=== PATIENT | female | born 1960 | race African-American/Black ===

== ENCOUNTER 2016-10-09 16:26 | Inpatient (IN) | payer BC ==
[2016-10-09 16:40] VITALS: BMI 29.0
[2016-10-09 17:12] LABS: BASOPHIL 0.8 % (0-2.0); EOSINOPHIL 1.9 % (0-4.5); MCH 28.6 pg (25.7-33.7); MCHC 32.5 g/dl (32.0-36.0); MEAN CELL VOLUME 87.9 fl (80-96); MEAN PLT VOLUME 9.4 fl (7.5-11.1); NEUTROPHILS 43.4 % (42.8-82.8); PLATELET COUNT 160 K/MM3 (134-434); RDW 15.7 % (11.6-15.6); WHITE BLOOD COUNT 6.6 K/mm3 (4.0-10.0)
--- NOTE | 2016-10-09 17:24 | PDOC ---
History of Present Illness - General Chief Complaint: Substance Abuse Stated Complaint: EDEMA Time Seen by Provider: 10/09/16 16:31 History Source: Patient Exam Limitations: No Limitations - History of Present Illness Initial Comments: 10/09/16 17:19 Patient is a 56 year old woman with a history of CAD, CHF, AICD, alcohol abuse and cocaine abuse here today complaining of edema. The patient states that she starting using cocaine and alcohol starting about 3 days ago with last use at 06 :00 today and was in her normal state of health before then. While using cocaine , she felt chest pain and shortness of breath, then her legs became swollen. She has been non-compliant with her home medications (Aspirin 81, Albuterol inhaler, and Lasix). Patient history is somewhat limited due to intoxication during the beginning of this current illness. Past History - Past Medical History Allergies/Adverse Reactions: Allergies Allergy/AdvReac Type Severity Reaction Status Date / Time No Known Allergies Allergy Verified 10/09/16 16:37 Home Medications: Ambulatory Orders Aspirin Coated [Ecotrin -] 81 mg PO DAILY #30 tablet.ec 05/21/16 Furosemide [Lasix -] 40 mg PO BID@0600,1400 #60 tablet 05/21/16 Potassium Chloride [K-Dur -] 20 meq PO DAILY #30 tablet.er 05/21/16 Cardiac Disorders: Yes (MASSIVE SC,) Hx Myocardial Infarction: Yes COPD: Yes CHF: Yes HTN: Yes - Surgical History Cardiac Surgery: Yes (PACEMAKER) - Immunization History Immunization Up to Date: Yes - Psycho/Social/Smoking Cessation Hx Anxiety: No Suicidal Ideation: No Smoking History: Current every day smoker Have you smoked in the past 12 months: Yes Number of Cigarettes Smoked Daily: 10 If you are a former smoker, when did you quit?: UNK Information on smoking cessation initiated: No 'Breaking Loose' booklet given: 05/18/16 Hx Alcohol Use: Yes Drug/Substance Use Hx: Yes (10/09/16) Substance Use Type: Alcohol, Cocaine Review of Systems - Review of Systems Constitutional: No: Chills, Fever HEENTM: Yes: Blurred Vision. No: Hearing Loss Respiratory: Yes: Cough, Shortness of Breath, SOB with Exertion Cardiac (ROS): Yes: Chest Pain, Edema ABD/GI: Yes: Other (Abdominal pain). No: Constipated Neurological: Yes: Headache, Weakness (generalized). No: Dizziness Psychiatric: Yes: Stressors, Emotional Problems Endocrine: Yes: Change in Weight (gained weight) *Physical Exam - Vital Signs Last Vital Signs Temp Pulse Resp BP Pulse Ox 97.5 F L 70 20 84/64 95 10/09/16 16:38 10/09/16 16:38 10/09/16 16:38 10/09/16 16:38 10/09/16 16:38 - Physical Exam General Appearance: Yes: Disheveled, Obese HEENT: positive: EOMI, Normal Voice Neck: negative: Tender, Stridor Respiratory/Chest: positive: Lungs Clear, Normal Breath Sounds, Respiratory Distress. negative: Accessory Muscle Use, Rapid RR Cardiovascular: positive: Regular Rhythm, Regular Rate, Edema (2+ pitting edema above knees bilaterally) Gastrointestinal/Abdominal: positive: Normal Bowel Sounds, Tender (tender on right side, not peritoneal), Soft Extremity: positive: Normal Capillary Refill, Tender (Lower extremities tender bilaterally) Neurologic: positive: reeling operator II-XII NML intact, Alert, Normal Response Heart Score/ECG Review #1 10/09/16 18:33 Regular rate, one PVC with abnormal P wave axis. No t-wave inversions. No ST elevation. LVH by voltage criteria. ED Treatment Course - LABORATORY CBC & Chemistry Diagram: 10/09/16 16:54 10/09/16 16:54 - ADDITIONAL ORDERS Additional order review: 10/09/16 16:54 RBC 4.81 MCV 87.9 MCHC 32.5 RDW 15.7 H MPV 9.4 Neutrophils % 43.4 Lymphocytes % 45.5 H Monocytes % 8.4 Eosinophils % 1.9 D Basophils % 0.8 - RADIOLOGY Radiology Studies Ordered: Category Date Time Status CHEST X-RAY PORTABLE* [RAD] Stat Radiology 10/09/16 16:49 Ordered DUPLEX VASCUL US-2LEGS [US] Stat Ultrasound 10/09/16 17:15 Ordered Radiograph Interpretation: 10/09/16 19:59 Bilateral lower extremity venous ultrasound - No DVT is identified involving either leg. Medical Decision Making - Medical Decision Making 10/09/16 18:21 56F with PMH of cocaine and alcohol abuse, CHF, and s/p AICD here today complaining of edema and shortness of breath. Patient stated that she's started using alcohol and cocaine 72 hours ago until 6am today. Blood pressures were soft to 85/65 with edema. Blood pressure was reassessed and was 120/92. Concerned for CHF exacerbation secondary to cocaine use and medication non- compliance, ACS, and DVT. 10/09/16 18:36 EKG reviewed. Showed abnormal p-waves and prolonged qt, but no t-wave inversions unlike prior ekgs. Also showed LVH by voltage criteria, consistent with prior ECGs and CXR. CXR showed cardiomegaly and interstitial edema 10/09/16 20:02 US Showed No DVT 10/09/16 20:03 Patients BP is now 106/75 with a HR in the 80s. Home dose of lasix given. Plan to admit for fluid overload with labile blood pressures. 10/09/16 21:[address] Medina on Med/Surg *DC/Admit/Observation/Transfer Diagnosis at time of Disposition: Cocaine abuse Congestive heart failure (CHF) Qualifiers: Congestive heart failure type: unspecified congestive heart failure type Congestive heart failure chronicity: acute Qualified Code(s): I50.9 - Heart failure, unspecified - Discharge Dispostion Condition at time of disposition: Guarded Admit: Yes - Attestations Physician Attestion: 10/09/16 18:26 I, Dr. Juan Gruber, attest that this document has been prepared under my direction and personally reviewed by me in its entirety. I further attest, that it accurately reflects all work, treatment, procedures and medical decision -making performed by me.
[2016-10-09 17:36] LABS: INR 1.33 (0.82-1.09); PROTHROMBIN TIME (PATIENT) 14.7 SEC (9.98-11.88)
[2016-10-09 17:39] LABS: ACTIVATED PTT 30.3 SECONDS (26.9-34.4)
[2016-10-09 18:09] LABS: ALBUMIN 3.6 g/dl (3.4-5.0); ANION GAP 9 (8-16); BILIRUBIN,TOTAL 1.5 mg/dL (0.2-1.0); CALCIUM 8.5 mg/dL (8.5-10.1); CO2 25 mmol/L (21-32); CREATININE 0.9 mg/dL (0.55-1.02); GLUCOSE,RANDOM 107 mg/dL (74-106); SGOT/AST 55 U/L (15-37); SGPT/ALT 46 U/L (12-78); TOT PROT 7.2 g/dl (6.4-8.2)
--- NOTE | 2016-10-09 18:10 | PDOC ---
Attending Attestation - Resident Resident Name: Juan Gruber - ED Attending Attestation I have performed the following: I have examined & evaluated the patient, The case was reviewed & discussed with the resident, I agree w/resident's findings & plan, Exceptions are as noted - HPI HPI: 10/09/16 17:58 This is a 56 yo F h/o CAD s/p IN, s/p AICD, CHF, cocaine abuse Pt presented to the [facility] program requesting detox from cocaine Pt was noted to have lower extremity edema She was sent to the ER for evaluation Pt states that she has been doing cocaine for the past 3 days, last use this morning She denies other substance use She has been non compliant with her medications She has had lower extremity edema She has been going to people's homes to get cocaine so she has not elevating her legs - Physicial Exam PE: 10/09/16 18:10 PT is awake and alert speaking in clear and complete sentences RRR Lungs clear 3+ pitting edema bilaterally - Medical Decision Making 10/09/16 18:12 Will check labs Will check duplex Will plan to admit 10/09/16 18:48 Laboratory Tests 10/09/16 10/09/16 10/09/16 16:54 16:54 16:54 WBC 6.6 Hgb 13.8 Hct 42.3 Plt Count 160 Sodium 141 Potassium 3.5 Chloride 107 Carbon Dioxide 25 BUN 12 Creatinine 0.9 Random Glucose 107 H D Creatine Kinase Troponin I < 0.02 B-Natriuretic Peptide 3642.68 H 10/09/16 17:23 WBC Hgb Hct Plt Count Sodium Potassium Chloride Carbon Dioxide BUN Creatinine Random Glucose Creatine Kinase 109 Troponin I < 0.02 B-Natriuretic Peptide
[2016-10-09 18:11] LABS: ALK PHOS 99 U/L (45-117); TROPONIN I < 0.02 ng/ml (0.00-0.05)
[2016-10-09 18:24] LABS: TROPONIN I < 0.02 ng/ml (0.00-0.05)
[2016-10-09 19:43] LABS: URINE APPEARANCE CLEAR; URINE BILIRUBIN NEGATIVE (NEGATIVE); URINE BLOOD NEGATIVE (NEGATIVE); URINE COLOR AMBER; URINE GLUCOSE (UA) NEGATIVE (NEGATIVE); URINE KETONE NEGATIVE (NEGATIVE); URINE LEUK ESTERASE NEGATIVE (NEGATIVE); URINE NITRITE NEGATIVE (NEGATIVE); URINE PROTEIN 1+ (NEGATIVE); URINE UROBILINOGEN 4.0 E.U/dl E.U./dl (0.2-1.0)
[2016-10-09 19:45] LABS: URINE BACTERIA RARE /hpf (NONE SEEN); URINE MUCUS RARE; URINE RBC 2 /hpf (0-3); URINE WBC 4 /hpf (3-5)
[2016-10-09] MEDS ORDERED: FUROSEMIDE 40 MG/4 ML INJECTABLE VIAL IVPUSH ONE ×2 (19:56→23:30)
[2016-10-09 20:14] LABS: PLATELET ESTIMATE ADEQUATE (NORMAL)
[2016-10-09] MEDS ORDERED: FUROSEMIDE 40 MG/4 ML INJECTABLE VIAL ONE (20:23)
[2016-10-09 21:26] LABS: URINE MARIJUANA THC NEGATIVE ng/ml (CUTOFF=50)
--- NOTE | 2016-10-09 21:38 | PN ---
Teaching Attending Note Name of Resident: Kelly Benitez ATTENDING PHYSICIAN STATEMENT I saw and evaluated the patient. I reviewed the resident's note and discussed the case with the resident. I agree with the resident's findings and plan as documented. SUBJECTIVE: 56 F hx of CAD, s/p CA, S/P ICD ( turned off by Patient request), CHF, cocaine abuse who ppresents from [facility]. Notes she has been on cocaine for past 3 days. While on Cocaine pt. felt chest pain, and shortness of breath. Also noted LE edema. States she has been non-complaint with her medications. Notes that over the past few days she has had increased shortness of breath with mild exertion (several feet). Notes no chest pain or shortness of breath currently. No fevers, chills, nausea, vomiting or diarrhea. OBJECTIVE: Physical: VS: Vital Signs Period Temp Pulse Resp BP Sys/Bravo Pulse Ox Last 24 Hr 97.2 F-98.1 F 68-75 16-20 84-106/58-73 95-98 GEN: NAD, Resting in bed, able to speak full sentences HEENT: NCAT, PERRL CARD: RRR S1, S2 RESP: CTAB ABD: BS X4, NTD to palpation EXT: +2 Pitting edema, bilateral and equal CBCD WBC 6.6 K/mm3 (4.0-10.0) 10/09/16 16:54 RBC 4.81 M/mm3 (3.60-5.2) 10/09/16 16:54 Hgb 13.8 GM/dL (10.7-15.3) 10/09/16 16:54 Hct 42.3 % (32.4-45.2) 10/09/16 16:54 MCV 87.9 fl (80-96) 10/09/16 16:54 MCHC 32.5 g/dl (32.0-36.0) 10/09/16 16:54 RDW 15.7 % (11.6-15.6) H 10/09/16 16:54 Plt Count 160 K/MM3 (134-434) 10/09/16 16:54 MPV 9.4 fl (7.5-11.1) 10/09/16 16:54 CMP Sodium 141 mmol/L (136-145) 10/09/16 16:54 Potassium 3.5 mmol/L (3.5-5.1) 10/09/16 16:54 Chloride 107 mmol/L (98-107) 10/09/16 16:54 Carbon Dioxide 25 mmol/L (21-32) 10/09/16 16:54 Anion Gap 9 (8-16) 10/09/16 16:54 BUN 12 mg/dL (7-18) 10/09/16 16:54 Creatinine 0.9 mg/dL (0.55-1.02) 10/09/16 16:54 Creat Clearance w eGFR > 60 (>60) 10/09/16 16:54 Random Glucose 107 mg/dL (74-106) H D 10/09/16 16:54 Calcium 8.5 mg/dL (8.5-10.1) 10/09/16 16:54 Total Bilirubin 1.5 mg/dL (0.2-1.0) H 10/09/16 16:54 AST 55 U/L (15-37) H 10/09/16 16:54 ALT 46 U/L (12-78) D 10/09/16 16:54 Alkaline Phosphatase 99 U/L (45-117) D 10/09/16 16:54 Total Protein 7.2 g/dl (6.4-8.2) 10/09/16 16:54 Albumin 3.6 g/dl (3.4-5.0) 10/09/16 16:54 CARDIAC ENZYMES Creatine Kinase 109 IU/L (26-192) 10/09/16 17:23 Troponin I < 0.02 ng/ml (0.00-0.05) 10/09/16 17:23 Duplex LE- Negative CXR- ICD, Cardiomegaly, vasc. congestion Echo (05/26)- EF 21% Mod MR, Mod TR HEART 4 ASSESSMENT AND PLAN: 56 F w pmhx of CAD s/p CA, CHF, cocaine abuse, who presents from [facility] with chest pain LE edema and shortness of breath found to be in CHF exacerbation 1.) Chest pain - RO acs - Trend Trop/EKG - No BB due to cocaine abuse - 02 2L NC - Pain control - Cardio consult- Heart 4 2.) Acute on Chronic Systolic Heart Failure - S/P Lasix 40 IV in Ed - Strict I/O - Daily Wieghts - Na/Fluid restrict - Last Echo 05/26- Repeat - Not on BB due to hx. of Cocaine abuse - Consider PEPITO/ARB 3.) Mild transaminitis/Hyperbilirubinemia - Trend 4.) Cocaine Abuse - Detox consult 5.) Dvt Ppx - Heparin 5000 q 8 Rest as per resident note
--- NOTE | 2016-10-09 22:44 | HP ---
CHIEF COMPLAINT: Chest pain, Shortness of breath and bilateral lower extremities edema. PCP: HISTORY OF PRESENT ILLNESS: Patient is a 56 year old woman with a history of CAD, systolic CHF, s/p ACD ( turned off per patient request), alcohol abuse and cocaine abuse presented to the Ed today from [facility] due to sharp midsternal chest pain radiated to left arm, associated with numbness and tingling in herleft arm.Patient complained of SOB an lower extremities edema that has been getting worse for the last 3 weeks. The patient states that she has been using cocaine and alcohol for the last 3 days ago with last use at 06:00 today and was in her normal state of health before then. While using cocaine, she felt chest pain and shortness of breath.she denies any N/V/D/C.she reports blurry vision but she denies any headache, dizziness, light headedness,she denies cough,but she reports dyspnea on minimal excersion. She has been non-compliant with her home medications (Aspirin 81, Albuterol inhaler, and Lasix). ER course was notable for: (1)Furosemide 20 mg IV push given in the ER (2)EKG reviewed. Showed abnormal p-waves and prolonged qt, but no t-wave inversions unlike prior ekgs. Also showed LVH by voltage criteria, consistent with prior ECGs and CXR. (3) Recent Travel:No PAST MEDICAL HISTORY: CAD, CHF, OK, S/P ACD. PAST SURGICAL HISTORY:tonsillectomy Social History: Smoking: Alcohol:heavy drinker of alcohol. Drugs:cocaine and she denies any other drugs. Family History:father of prostate cancer, sister diagnosed with unknown cancer, and brother with cirrhosis of the liver.No family history of sudden . Allergies No Known Allergies Allergy (Verified 10/09/16 16:37) HOME MEDICATIONS: Home Medications Medication Instructions Recorded Aspirin Coated [Ecotrin -] 81 mg PO DAILY #30 tablet.ec 05/21/16 Furosemide [Lasix -] 40 mg PO BID@0600,1400 #60 tablet 05/21/16 Potassium Chloride [K-Dur -] 20 meq PO DAILY #30 tablet.er 05/21/16 REVIEW OF SYSTEMS CONSTITUTIONAL: No fever, chills, diaphoresis, generalized weakness,+ malaise 2/2 to cocaine abuse, NO loss of appetite,or any weight change HEENT: No rhinorrhea, nasal congestion, throat pain, throat swelling,denies difficulty swallowing, mouth swelling, ear pain, eye pain, visual changes CARDIOVASCULAR: +chest pain, No syncope, palpitations, lightheadedness,(+2 ) peripheral edema RESPIRATORY: No cough,+ shortness of breath, + dyspnea with exertion,no wheezing, stridor, hemoptysis GASTROINTESTINAL: No abdominal pain, +abdominal distension,No nausea, vomiting, diarrhea, constipation, melena,or hematochezia GENITOURINARY: No dysuria, frequency, urgency, hesitancy, hematuria, flank pain,or genital pain MUSCULOSKELETAL: No myalgia, arthralgia, joint swelling, back pain, neck pain SKIN: No rash, itching, pallor HEMATOLOGIC/IMMUNOLOGIC: No easy bleeding, easy bruising, lymphadenopathy, frequent infections ENDOCRINE:No unexplained weight gain, unexplained weight loss, heat intolerance , cold intolerance NEUROLOGIC: No headache, focal weakness, dizziness, unsteady gait, seizure, bladder or bowel incontinence. she was very sleepy to answer our questions. PSYCHIATRIC: no anxiety, depression, suicidal or homicidal ideation, hallucinations. PHYSICAL EXAMINATION: Initial Vital Signs Temp Pulse Resp BP Pulse Ox 97.5 F L 70 20 84/64 95 10/09/16 16:38 10/09/16 16:38 10/09/16 16:38 10/09/16 16:38 10/09/16 16:38 GENERAL: sleepy , fatigue,fully oriented, in moderate distress distress. HEAD: Normal with no signs of trauma. EYES: Pupils equal, round and reactive to light, extraocular movements intact. EARS, NOSE, THROAT: Ears normal, nares patent, oropharynx clear without exudates. Moist mucous membranes. NECK: Normal range of motion, supple without lymphadenopathy, JVD, or masses. LUNGS: diminished breath sound through out lung basesB/L. No wheezes, and no crackles. No accessory muscle use. HEART: Regular rate and rhythm, normal S1 and S2 without murmur, rub or gallop. ABDOMEN: Soft, nontender,+ distended, normoactive bowel sounds, no guarding, no rebound, no masses. No hepatomegaly or splenomegaly. MUSCULOSKELETAL: Normal range of motion at all joints. No bony deformities or tenderness. No CVA tenderness. UPPER EXTREMITIES: 2+ pulses, warm, well-perfused. No cyanosis. No clubbing.(+2 ) peripheral edema. LOWER EXTREMITIES: 2+ pulses, warm, well-perfused. No calf tenderness. (+2) peripheral edema. NEUROLOGICAL: Normal speech, intoxicated and drowsy. PSYCHIATRIC: Cooperative. poor eye contact. SKIN: Warm, dry, normal turgor, no rashes or lesions noted, normal capillary refill. CBC, BMP 10/09/16 16:54 10/09/16 16:54 Troponin, BNP 10/09/16 10/09/16 10/09/16 16:54 16:54 17:23 Troponin I < 0.02 < 0.02 B-Natriuretic Peptide 3642.68 H * LE US ruled out DVT. * Chest X ray was ordered. ASSESSMENT/PLAN: 56 F w pmhx of CAD s/p OK, CHF, cocaine abuse, who presents from [facility] with chest pain, LE edema and shortness of breath found to be in CHF exacerbation Chest pain, Acute -Likely secondary to Cocaine Abuse -Heart Score: 4 -Avoid Beta Blockers -First troponin negative. Continue to trend -Recheck EKG in the morning -Pain control and 02 -Cardiology consult placed Acute on Chronic Systolic CHF -Likely secondary to medication noncompliance. Patient reports not taking Lasix for the last three weeks -Lasix 40mg IV given. Will continue daily -Last ECHO 05/2016, which showed severe global wall hypokinesis and EF of 21% -On no PEPITO/ARB as patient's BP could not tolerate. Likely failed outpatient follow up -On no Beta Blockers due to patients history of Cocaine abuse -Continue ASA 81mg daily -Strict I&O's -Daily weights -Sodium controlled diet with limited fluid intake QTc prolongation -K=3.5 -MG level was ordered. -Likely from Heavy cocaine use/abuse , no h/o sudden cardiac in the family. -Avoid medications that prolong QTc -Repeated EKG in the morning showed QTprolongation, no significant St, T changes compare for previous EKG. -Avoid exertion. Cocaine Abuse -Currently at [facility] detox -Detox consult placed Mild transaminitis/Hyperbilirubinemia - Trend F/E/N -No IV fluids -Electrolytes wnl -Sodium controlled diet Prophylaxis -Heparin 5000 units SQ TID Disposition -Full code -Will admit to telemetry for further cardiac monitoring. Awaiting cardiology consult Visit type - Emergency Visit Emergency Visit: Yes ED Registration Date: 10/09/16 Care time: The patient presented to the Emergency Department on the above date and was hospitalized for further evaluation of their emergent condition. - New Patient This patient is new to me today: Yes Date on this admission: 10/10/16 - Critical Care Critical Care patient: No
--- NOTE | 2016-10-09 23:15 | MSN ---
Progress Note (short form) - Note Progress Note: CC: Radiating chest pain, SOB, and bilateral leg swelling. HPI: Patient is a 56 year old black female with past med hx of CAD, ND, CHF with AICD, and cocaine abuse. Patient presented to the ER after having chest pain, SOB and leg swelling after smoking crack cocaine. The patient stated that the chest pain was accompanied by pain radiating to her abdomen and numbness and tingling in her left arm. At that time she also was experiencing shortness of breath and bilateral leg edema. The patient stated that she often feels short of breath and only able to walk short distances. She said that she has had chest pain before but was unable to say if it was similar or different from her presenting symptoms. She stated that she does not normally have swelling in her legs. Sohx- Patient eats regularly, smokes crack cocaine in binges lasting for "days" with her most current use being this morning, drinks alcohol regularly and binge drinks often Allergies- no known allergies Surgical hx- tonsillectomy at unknown time in the past Fam hx- father of prostate cancer, sister diagnosed with unknown cancer, and brother with cirrhosis of the liver. Home Medications Medication Instructions Recorded Aspirin Coated [Ecotrin -] 81 mg PO DAILY #30 tablet.ec 05/21/16 Furosemide [Lasix -] 40 mg PO BID@0600,1400 #60 tablet 05/21/16 Potassium Chloride [K-Dur -] 20 meq PO DAILY #30 tablet.er 05/21/16 ROS- Constitutional- no fevers or chills, nausea or vomiting. HEENT- no headache, cough, sore throat, hearing loss or balance. Eyes- blurred vision Heart- Pain radiating to the abdomen with associated numbness and tingling in the left upper extremity. Lungs- shortness of breath with no coughing or sputum production. Extremities- no loss of sensation, generalized weakness, or joint pain. Abdomen- no abdominal pain with regular bowel movements and increased frequency of urination with no associated burning, pain, or blood. Vital Signs Period Temp Pulse Resp BP Sys/Bravo Pulse Ox Last 24 Hr 97.2 F-98.3 F 66-75 16-20 84-106/58-73 95-98 Exam: General- alert and oriented, in moderate distress, appears stated age. Neurological- no focal neurological deficits, no facial droop, intact sensation on both sides of face. CN I, III, IV, V, , VII, VIII, XI, and XII tested and intact. Heart- Regular rate and rhythm, normal S1 and S2 with no murmurs rubs or gallops. Lungs- clear to auscultation bilaterally in all lung aranda with no wheezes, rhonchi or rales. Extremities- Patient denied muscle strength testing, but has 2/4 pulses in all extremities with intact sensation. Patient has 2+ pitting edema in both legs bilaterally. Abdomen- no guarding, moderated distention. Normoactive bowel sounds, with tenderness to deep palpation in a four of the tested quadrants. palpable liver. Psych- uncooperative and agitated. Skin- warm and dry Laboratory Results - last 24 hr 10/09/16 10/09/16 10/09/16 16:54 16:54 16:54 WBC 6.6 RBC 4.81 Hgb 13.8 Hct 42.3 MCV 87.9 MCHC 32.5 RDW 15.7 H Plt Count 160 MPV 9.4 Neutrophils % 43.4 Lymphocytes % 45.5 H Monocytes % 8.4 Eosinophils % 1.9 D Basophils % 0.8 Differential Comment Slide scanned Platelet Estimate Adequate Platelet Comment Few giant plts INR 1.33 H PTT (Actin FS) 30.3 Sodium 141 Potassium 3.5 Chloride 107 Carbon Dioxide 25 Anion Gap 9 BUN 12 Creatinine 0.9 Creat Clearance w eGFR > 60 Random Glucose 107 H D Lactic Acid Calcium 8.5 Total Bilirubin 1.5 H AST 55 H ALT 46 D Alkaline Phosphatase 99 D Creatine Kinase Troponin I < 0.02 B-Natriuretic Peptide Total Protein 7.2 Albumin 3.6 Serum , Qual Urine Color Urine Appearance Urine pH Ur Specific [place] Urine Protein Urine Glucose (UA) Urine Ketones Urine Blood Urine Nitrite Urine Bilirubin Urine Urobilinogen Ur Leukocyte Esterase Urine RBC Urine WBC Ur Epithelial Cells Urine Bacteria Urine Mucus Opiates Screen Methadone Screen Barbiturate Screen Phencyclidine Screen Ur Amphetamines Screen MDMA (Ecstasy) Screen Benzodiazepines Screen Cocaine Screen U Marijuana (THC) Screen Blood Type Antibody Screen 10/09/16 10/09/16 10/09/16 16:54 16:54 16:54 WBC RBC Hgb Hct MCV MCHC RDW Plt Count MPV Neutrophils % Lymphocytes % Monocytes % Eosinophils % Basophils % Differential Comment Platelet Estimate Platelet Comment INR PTT (Actin FS) Sodium Potassium Chloride Carbon Dioxide Anion Gap BUN Creatinine Creat Clearance w eGFR Random Glucose Lactic Acid Calcium Total Bilirubin AST ALT Alkaline Phosphatase Creatine Kinase Troponin I B-Natriuretic Peptide 3642.68 H Total Protein Albumin Serum , Qual Negative Urine Color [place] Urine Appearance Clear Urine pH 5.0 Ur Specific [place] 1.020 Urine Protein 1+ H Urine Glucose (UA) Negative Urine Ketones Negative Urine Blood Negative Urine Nitrite Negative Urine Bilirubin Negative Urine Urobilinogen 4.0 e.u/dl H Ur Leukocyte Esterase Negative Urine RBC 2 Urine WBC 4 Ur Epithelial Cells Rare Urine Bacteria Rare Urine Mucus Rare Opiates Screen Methadone Screen Barbiturate Screen Phencyclidine Screen Ur Amphetamines Screen MDMA (Ecstasy) Screen Benzodiazepines Screen Cocaine Screen U Marijuana (THC) Screen Blood Type O POSITIVE Antibody Screen Negative 10/09/16 10/09/16 10/09/16 17:23 17:23 21:00 WBC RBC Hgb Hct MCV MCHC RDW Plt Count MPV Neutrophils % Lymphocytes % Monocytes % Eosinophils % Basophils % Differential Comment Platelet Estimate Platelet Comment INR PTT (Actin FS) Sodium Potassium Chloride Carbon Dioxide Anion Gap BUN Creatinine Creat Clearance w eGFR Random Glucose Lactic Acid 2.0 Calcium Total Bilirubin AST ALT Alkaline Phosphatase Creatine Kinase 109 Troponin I < 0.02 B-Natriuretic Peptide Total Protein Albumin Serum , Qual Urine Color Urine Appearance Urine pH Ur Specific [place] Urine Protein Urine Glucose (UA) Urine Ketones Urine Blood Urine Nitrite Urine Bilirubin Urine Urobilinogen Ur Leukocyte Esterase Urine RBC Urine WBC Ur Epithelial Cells Urine Bacteria Urine Mucus Opiates Screen Negative Methadone Screen Negative Barbiturate Screen Negative Phencyclidine Screen Negative Ur Amphetamines Screen Negative MDMA (Ecstasy) Screen Negative Benzodiazepines Screen Positive Cocaine Screen Positive U Marijuana (THC) Screen Negative Blood Type Antibody Screen Imaging: EKG (10/09/16)- prolonged QTc of 526 ms Ultrasound (10/09/16)- no evidence to DVT bilaterally. Chest x-ray (10/09/16)- taken, awaiting interpretation. Assessment and Plan: Patient is a 56 year old black female with a past medical hx of CAD, ND, AICD, CHF and cocaine abuse who presented to the ER with chest pain, SOB, and bilateral leg edema admitted for CHF exacerbation. 1) CHF exacerbation secondary to medication non-compliance - Furosemide 20 mg IV push given in the ER - Start fusosemide 40 mg IVBP - continue to monitor BP for hypertension F/E/N - no IV fluids indicated - sodium controlled diet DVT prophylaxis - heparin 5000 units SC
--- NOTE | 2016-10-09 23:31 | HP ---
HISTORY OF PRESENT ILLNESS: Patient is a 56 year old female with a PMHx of CAD S/P OH, S/P ICD (turned off as per patients request), Systolic CHF, and cocaine abuse presents from [facility] complaining of midsternal sharp chest pain that started today, radiating to the left arm, associated with increasing dyspnea for the last three weeks and increasing LE edema bilaterally. Patient states she is unable to walk more than a few steps without experiencing shortness of breath. Patient does admit to not taking her lasix the last three weeks because she stops taking her medications when she goes on a "drinking and drugging binge." Patient reports for the last three weeks she has been drinking and using cocaine heavily everyday with the last use of cocaine this morning. Patient otherwise denies fever, chills, nausea, vomiting, abdominal pain, headaches, acute visual changes. PHYSICAL EXAMINATION Vital Signs - 24 hr 10/09/16 22:40 Temperature 98.3 F Pulse Rate [ 66 Left Apical] Respiratory 18 Rate Blood Pressure 90/58 [Left Arm] O2 Sat by Pulse 96 Oximetry (%) GENERAL: Awake, disheveled, in no acute distress LUNGS: Decreased breath sounds throughout lung bases bilaterally. No crackles or wheezes HEART: Regular rate and rhythm, normal S1 and S2 without murmur, rub or gallop. ABDOMEN: Soft, nontender, not distended, normoactive bowel sound. LOWER EXTREMITIES: 2+ pitting edema. No calf tenderness. NEUROLOGICAL: Intoxicated and drowsy. No facial droop. SKIN: Warm, dry, normal turgor, no rashes or lesions noted, normal capillary refill. WBC 6.6 K/mm3 (4.0-10.0) 10/09/16 16:54 RBC 4.81 M/mm3 (3.60-5.2) 10/09/16 16:54 Hgb 13.8 GM/dL (10.7-15.3) 10/09/16 16:54 Hct 42.3 % (32.4-45.2) 10/09/16 16:54 MCV 87.9 fl (80-96) 10/09/16 16:54 MCHC 32.5 g/dl (32.0-36.0) 10/09/16 16:54 RDW 15.7 % (11.6-15.6) H 10/09/16 16:54 Plt Count 160 K/MM3 (134-434) 10/09/16 16:54 MPV 9.4 fl (7.5-11.1) 10/09/16 16:54 Neutrophils % 43.4 % (42.8-82.8) 10/09/16 16:54 Lymphocytes % 45.5 % (8-40) H 10/09/16 16:54 Monocytes % 8.4 % (3.8-10.2) 10/09/16 16:54 Eosinophils % 1.9 % (0-4.5) D 10/09/16 16:54 Basophils % 0.8 % (0-2.0) 10/09/16 16:54 Differential Comment Slide scanned 10/09/16 16:54 Platelet Estimate Adequate (NORMAL) 10/09/16 16:54 Platelet Comment Few giant plts 10/09/16 16:54 Sodium 141 mmol/L (136-145) 10/09/16 16:54 Potassium 3.5 mmol/L (3.5-5.1) 10/09/16 16:54 Chloride 107 mmol/L (98-107) 10/09/16 16:54 Carbon Dioxide 25 mmol/L (21-32) 10/09/16 16:54 Anion Gap 9 (8-16) 10/09/16 16:54 BUN 12 mg/dL (7-18) 10/09/16 16:54 Creatinine 0.9 mg/dL (0.55-1.02) 10/09/16 16:54 Creat Clearance w eGFR > 60 (>60) 10/09/16 16:54 Random Glucose 107 mg/dL (74-106) H D 10/09/16 16:54 Lactic Acid 2.0 mmol/L (0.4-2.0) 10/09/16 17:23 Calcium 8.5 mg/dL (8.5-10.1) 10/09/16 16:54 Total Bilirubin 1.5 mg/dL (0.2-1.0) H 10/09/16 16:54 AST 55 U/L (15-37) H 10/09/16 16:54 ALT 46 U/L (12-78) D 10/09/16 16:54 Alkaline Phosphatase 99 U/L (45-117) D 10/09/16 16:54 Creatine Kinase 109 IU/L (26-192) 10/09/16 17:23 Troponin I < 0.02 ng/ml (0.00-0.05) 10/09/16 17:23 B-Natriuretic Peptide 3642.68 pg/ml (5-125) H 10/09/16 16:54 Total Protein 7.2 g/dl (6.4-8.2) 10/09/16 16:54 Albumin 3.6 g/dl (3.4-5.0) 10/09/16 16:54 Serum , Qual Negative 10/09/16 16:54 ASSESSMENT/PLAN: Patient is a 56 year old female with a PMHx of CAD S/P OH, S/P ICD (turned off as per patients request), Systolic CHF, and cocaine abuse who presents for chest pain, increasing dyspnea and LE edema. Patient was found to have CHF exacerbation and admitted for further monitoring and management. Chest pain -Likely secondary to Cocaine Abuse -Heart Score: 4 -Avoid Beta Blockers -First troponin negative. Continue to trend -Recheck EKG in the morning -Pain control and 02 -Cardiology consult placed Acute on Chronic Systolic CHF -Likely secondary to medication noncompliance. Patient reports not taking Lasix for the last three weeks -Lasix 40mg IV given. Will continue daily -Last ECHO 05/2016, which showed severe global wall hypokinesis and EF of 21% -On no PEPITO/ARB as patient's BP could not tolerate. Likely failed outpatient follow up -On no Beta Blockers due to patients history of Cocaine abuse -Continue ASA 81mg daily -Strict I&O's -Daily weights -Sodium controlled diet with limited fluid intake Lower Extremity Edema -Likely secondary to CHF exacerbation from medication noncompliance -Vascular duplex negative -Will continue to monitor QTc prolongation -Likely from Heavy cocaine use/abuse -Avoid medications that prolong QTc -Repeat EKG in the morning Cocaine Abuse -Currently at [facility] detox -Detox consult placed F/E/N -No IV fluids -Electrolytes wnl -Sodium controlled diet Prophylaxis -Heparin 5000 units SQ TID Disposition -Full code -Will admit to telemetry for further cardiac monitoring. Awaiting cardiology consult Visit type - Emergency Visit Emergency Visit: Yes ED Registration Date: 10/09/16 Care time: The patient presented to the Emergency Department on the above date and was hospitalized for further evaluation of their emergent condition. - New Patient This patient is new to me today: Yes Date on this admission: 10/11/16 - Critical Care Critical Care patient: No
[2016-10-10] MEDS: HEPARIN NA (PORCINE) 5,000 UNITS/ML 1ML VIAL SQ SCH ×3 (06:20→22:05)
--- NOTE | 2016-10-10 08:16 | PN ---
Progress Note (short form) - Note Progress Note: Subjective: Not cooperative , denies cp , admits to CP . has no fever or chills, admits to not taking her meds , and binge drinking and using cocaine x 4 days . Wants to be clean Objective: Vital Signs: Last Vital Signs Temp Pulse Resp BP Pulse Ox 98.7 F 70 20 100/73 96 10/10/16 06:00 10/10/16 06:00 10/10/16 06:00 10/10/16 06:00 10/09/16 22:40 I&O: Intake & Output 10/07/16 10/08/16 10/09/16 10/10/16 23:59 23:59 23:59 23:59 Weight 180 lb 180 lb 9.6 oz Laboratory Results - last 24 hr 10/09/16 10/09/16 10/09/16 16:54 16:54 16:54 WBC 6.6 RBC 4.81 Hgb 13.8 Hct 42.3 MCV 87.9 MCHC 32.5 RDW 15.7 H Plt Count 160 MPV 9.4 Neutrophils % 43.4 Lymphocytes % 45.5 H Monocytes % 8.4 Eosinophils % 1.9 D Basophils % 0.8 Differential Comment Slide scanned Platelet Estimate Adequate Platelet Comment Few giant plts INR 1.33 H PTT (Actin FS) 30.3 Sodium 141 Potassium 3.5 Chloride 107 Carbon Dioxide 25 Anion Gap 9 BUN 12 Creatinine 0.9 Creat Clearance w eGFR > 60 Random Glucose 107 H D Lactic Acid Calcium 8.5 Total Bilirubin 1.5 H AST 55 H ALT 46 D Alkaline Phosphatase 99 D Creatine Kinase Troponin I < 0.02 B-Natriuretic Peptide Total Protein 7.2 Albumin 3.6 Serum , Qual Urine Color Urine Appearance Urine pH Ur Specific [place] Urine Protein Urine Glucose (UA) Urine Ketones Urine Blood Urine Nitrite Urine Bilirubin Urine Urobilinogen Ur Leukocyte Esterase Urine RBC Urine WBC Ur Epithelial Cells Urine Bacteria Urine Mucus Opiates Screen Methadone Screen Barbiturate Screen Phencyclidine Screen Ur Amphetamines Screen MDMA (Ecstasy) Screen Benzodiazepines Screen Cocaine Screen U Marijuana (THC) Screen Blood Type Antibody Screen 10/09/16 10/09/16 10/09/16 16:54 16:54 16:54 WBC RBC Hgb Hct MCV MCHC RDW Plt Count MPV Neutrophils % Lymphocytes % Monocytes % Eosinophils % Basophils % Differential Comment Platelet Estimate Platelet Comment INR PTT (Actin FS) Sodium Potassium Chloride Carbon Dioxide Anion Gap BUN Creatinine Creat Clearance w eGFR Random Glucose Lactic Acid Calcium Total Bilirubin AST ALT Alkaline Phosphatase Creatine Kinase Troponin I B-Natriuretic Peptide 3642.68 H Total Protein Albumin Serum , Qual Negative Urine Color Yadira Urine Appearance Clear Urine pH 5.0 Ur Specific [place] 1.020 Urine Protein 1+ H Urine Glucose (UA) Negative Urine Ketones Negative Urine Blood Negative Urine Nitrite Negative Urine Bilirubin Negative Urine Urobilinogen 4.0 e.u/dl H Ur Leukocyte Esterase Negative Urine RBC 2 Urine WBC 4 Ur Epithelial Cells Rare Urine Bacteria Rare Urine Mucus Rare Opiates Screen Methadone Screen Barbiturate Screen Phencyclidine Screen Ur Amphetamines Screen MDMA (Ecstasy) Screen Benzodiazepines Screen Cocaine Screen U Marijuana (THC) Screen Blood Type O POSITIVE Antibody Screen Negative 10/09/16 10/09/16 10/09/16 17:23 17:23 21:00 WBC RBC Hgb Hct MCV MCHC RDW Plt Count MPV Neutrophils % Lymphocytes % Monocytes % Eosinophils % Basophils % Differential Comment Platelet Estimate Platelet Comment INR PTT (Actin FS) Sodium Potassium Chloride Carbon Dioxide Anion Gap BUN Creatinine Creat Clearance w eGFR Random Glucose Lactic Acid 2.0 Calcium Total Bilirubin AST ALT Alkaline Phosphatase Creatine Kinase 109 Troponin I < 0.02 B-Natriuretic Peptide Total Protein Albumin Serum , Qual Urine Color Urine Appearance Urine pH Ur Specific [place] Urine Protein Urine Glucose (UA) Urine Ketones Urine Blood Urine Nitrite Urine Bilirubin Urine Urobilinogen Ur Leukocyte Esterase Urine RBC Urine WBC Ur Epithelial Cells Urine Bacteria Urine Mucus Opiates Screen Negative Methadone Screen Negative Barbiturate Screen Negative Phencyclidine Screen Negative Ur Amphetamines Screen Negative MDMA (Ecstasy) Screen Negative Benzodiazepines Screen Positive Cocaine Screen Positive U Marijuana (THC) Screen Negative Blood Type Antibody Screen Physical Exam: NAD , not cooperative .MMM, JVD. round equal pupils , reactive to light CV: RRR, 2/6 SM at base LUSB > RUSB . JVD Lungs : CTAB ABd : soft, ND, TTP in RUQ , Neg Cosby's , Liver is palpated and percussed 1 cm below the costal margin no rebound tenderness or guarding Ext: 1+ edema on LE , no erythema Assessment/Plan: 56 y/o Lady with h/o CAD , s/p MA x 2, Ischemic CMP with severely reduced EF, and ICD ( turned off per her request) , h/o ETOH and cocaine abuse ( active ) , and non compliance who presented from home ( [facility] ) with CP . She was found to have acute S CHF exacerbation 1- Acute on chronic SCHF. ( JVD, LE edema , SOB ) not compliant , was not taking her lasix - cont lasix 40 daily - daily weight and I&O - repeat Echo ( last one in 05/26 with severely reduced EF , dilated LV, severe TR) - SBP last night 84, monitor and initiate PEPITO I when BP permits - Tele - CArd consult pending 2- CP : atypical , likely due to Cocaine use EKG with TWI in lateral leads and inferior leads, not changed from previous EKG. trop Neg x 2 - tele - cont ASA - not on BB due to cocaine use, will d/w card the use of B and Alpha blockers ( coreg , labetalol) , if BP permits 3- Possible H/O Ventricular arrhythmias . - tele - monitor electrolytes - card 4- ETOH abuse : interested in detox , no evidence of Wernicke's encephalopathy - give IV thiamine 200 - start folic and po thiamine daily - start librium protocol 5- DVT PX : SQ heparin 5- POssible LIver Dz; expect a component of cirrhosis whith her chronic alcohol use . she is not aware of any liver Dz. Bili is elevated , liver is palpated and percussed - check US of liver - follow LFTS DIPO : HLOC Visit type - Emergency Visit Emergency Visit: Yes ED Registration Date: 10/09/16 Care time: The patient presented to the Emergency Department on the above date and was hospitalized for further evaluation of their emergent condition. - New Patient This patient is new to me today: Yes Date on this admission: 10/10/16 - Critical Care Critical Care patient: No
[2016-10-10] MEDS ORDERED: chlordiazePOXIDE HCL 25 MG CAPSULE PO PRN (08:23)
--- NOTE | 2016-10-10 09:09 | CONSULT ---
Consult Detox [facility] Reason for Current Admission/Consult: Alcohol & cocaine dependence Referred by:: Jessica Medina DO - History History of Present Illness: 56 y/o woman with a long hx. of cocaine dependence is admitted with CHF. Pt. reports multiple out-patient tx. for cocaine,most recently at [facility]. - History Source History Provided By: Patient, Medical Record - Alcohol/Substance Use Hx Alcohol Use: Yes Hx Substance Use: Yes - Current Drug/Alcohol Use Alcohol Route: Oral Frequency: 3-6 times per week Amount used: Beer 3-4 cans(12 oz) Age of first use: 36 Date of Last Use: 10/09/16 Cocaine Route: Smoking Frequency: Daily Amount used: $50-60.00 Age of first use: 9 Date of Last Use: 10/09/16 - Past Medical History Cardio/Vascular: Yes: CAD, HTN, Hyperlipdemia, [place] Pulmonary: Yes: COPD ...: No Psych: Yes: Addictions (Alcohol and cocaine) - Past Surgical History Past Surgical History: Yes: AICD, Tonsillectomy, Tubal Ligation - Significant Medical Findings: Laboratory Last Values WBC 6.6 K/mm3 (4.0-10.0) 10/09/16 16:54 RBC 4.81 M/mm3 (3.60-5.2) 10/09/16 16:54 Hgb 13.8 GM/dL (10.7-15.3) 10/09/16 16:54 Hct 42.3 % (32.4-45.2) 10/09/16 16:54 MCV 87.9 fl (80-96) 10/09/16 16:54 MCHC 32.5 g/dl (32.0-36.0) 10/09/16 16:54 RDW 15.7 % (11.6-15.6) H 10/09/16 16:54 Plt Count 160 K/MM3 (134-434) 10/09/16 16:54 MPV 9.4 fl (7.5-11.1) 10/09/16 16:54 Neutrophils % 43.4 % (42.8-82.8) 10/09/16 16:54 Lymphocytes % 45.5 % (8-40) H 10/09/16 16:54 Monocytes % 8.4 % (3.8-10.2) 10/09/16 16:54 Eosinophils % 1.9 % (0-4.5) D 10/09/16 16:54 Basophils % 0.8 % (0-2.0) 10/09/16 16:54 Differential Comment Slide scanned 10/09/16 16:54 Platelet Estimate Adequate (NORMAL) 10/09/16 16:54 Platelet Comment Few giant plts 10/09/16 16:54 INR 1.33 (0.82-1.09) H 10/09/16 16:54 PTT (Actin FS) 30.3 SECONDS (26.9-34.4) 10/09/16 16:54 Sodium 141 mmol/L (136-145) 10/09/16 16:54 Potassium 3.5 mmol/L (3.5-5.1) 10/09/16 16:54 Chloride 107 mmol/L (98-107) 10/09/16 16:54 Carbon Dioxide 25 mmol/L (21-32) 10/09/16 16:54 Anion Gap 9 (8-16) 10/09/16 16:54 BUN 12 mg/dL (7-18) 10/09/16 16:54 Creatinine 0.9 mg/dL (0.55-1.02) 10/09/16 16:54 Creat Clearance w eGFR > 60 (>60) 10/09/16 16:54 Random Glucose 107 mg/dL (74-106) H D 10/09/16 16:54 Lactic Acid 2.0 mmol/L (0.4-2.0) 10/09/16 17:23 Calcium 8.5 mg/dL (8.5-10.1) 10/09/16 16:54 Total Bilirubin 1.5 mg/dL (0.2-1.0) H 10/09/16 16:54 AST 55 U/L (15-37) H 10/09/16 16:54 ALT 46 U/L (12-78) D 10/09/16 16:54 Alkaline Phosphatase 99 U/L (45-117) D 10/09/16 16:54 Creatine Kinase 109 IU/L (26-192) 10/09/16 17:23 Troponin I < 0.02 ng/ml (0.00-0.05) 10/09/16 17:23 B-Natriuretic Peptide 3642.68 pg/ml (5-125) H 10/09/16 16:54 Total Protein 7.2 g/dl (6.4-8.2) 10/09/16 16:54 Albumin 3.6 g/dl (3.4-5.0) 10/09/16 16:54 Serum , Qual Negative 10/09/16 16:54 Urine Color Yadira 10/09/16 16:54 Urine Appearance Clear 10/09/16 16:54 Urine pH 5.0 (5.0-8.0) 10/09/16 16:54 Ur Specific [place] 1.020 (1.005-1.025) 10/09/16 16:54 Urine Protein 1+ (NEGATIVE) H 10/09/16 16:54 Urine Glucose (UA) Negative (NEGATIVE) 10/09/16 16:54 Urine Ketones Negative (NEGATIVE) 10/09/16 16:54 Urine Blood Negative (NEGATIVE) 10/09/16 16:54 Urine Nitrite Negative (NEGATIVE) 10/09/16 16:54 Urine Bilirubin Negative (NEGATIVE) 10/09/16 16:54 Urine Urobilinogen 4.0 e.u/dl E.U./dl (0.2-1.0) H 10/09/16 16:54 Ur Leukocyte Esterase Negative (NEGATIVE) 10/09/16 16:54 Urine RBC 2 /hpf (0-3) 10/09/16 16:54 Urine WBC 4 /hpf (3-5) 10/09/16 16:54 Ur Epithelial Cells Rare /hpf (FEW) 10/09/16 16:54 Urine Bacteria Rare /hpf (NONE SEEN) 10/09/16 16:54 Urine Mucus Rare 10/09/16 16:54 Opiates Screen Negative ng/ml (IWNCJP=135) 10/09/16 21:00 Methadone Screen Negative ng/ml (BURCPC=246) 10/09/16 21:00 Barbiturate Screen Negative ng/ml (TXFNRL=110) 10/09/16 21:00 Phencyclidine Screen Negative ng/ml (CUTOFF=25) 10/09/16 21:00 Ur Amphetamines Screen Negative ng/ml (UHBNZS=533) 10/09/16 21:00 MDMA (Ecstasy) Screen Negative ng/ml (REDCVZ=561) 10/09/16 21:00 Benzodiazepines Screen Positive ng/ml (VQXUAZ=536) 10/09/16 21:00 Cocaine Screen Positive ng/ml (EHKYTY=842) 10/09/16 21:00 U Marijuana (THC) Screen Negative ng/ml (CUTOFF=50) 10/09/16 21:00 Blood Type O POSITIVE 10/09/16 16:54 Antibody Screen Negative 10/09/16 16:54 labs noted CIWA Score - CIWA Score Nausea/Vomitin-No Nausea/No Vomiting Muscle Tremors: 1-None Visible, but [place] Anxiety: 2 Agitation: 2 Paroxysmal Sweats: 1-Minimal Palms Moist Orientation: 0-Oriented Tacttile Disturbances: 0-None Auditory Disturbances: 0-None Visual Disturbances: 0-None Headache: 0-None Present CIWA-Ar Total Score: 6 Assessment Plan - Diagnosis (1) Cocaine dependence, uncomplicated Status: Acute (2) Uncomplicated alcohol dependence Status: Acute - Plan Plan: Continue Medical care Refer back to [facility] [place] [address] No need for alcohol detox because pt. has no withdrawal sx. & is not likely to have any.
[2016-10-10] MEDS ORDERED: THIAMINE HCL 200 MG/2 ML VIAL IVPB ONE (09:30)
--- NOTE | 2016-10-10 09:35 | CON.CARD ---
Consult Consult Specialty:: Cardiology Consult for dr. Lerma - History of Present Illness History of Present Illness: Patient is a 56 year old woman with a history of CAD, CHF, AICD, alcohol abuse and cocaine abuse here today complaining of edema. The patient states that she starting using cocaine and alcohol starting about 3 days ago with last use at 06 :00 today and was in her normal state of health before then. While using cocaine , she felt chest pain and shortness of breath, then her legs became swollen. She has been non-compliant with her home medications (Aspirin 81, Albuterol inhaler, and Lasix). Patient history is somewhat limited due to intoxication during the beginning of this current illness. - Past Medical History Cardio/Vascular: Yes: CAD, HTN, Hyperlipdemia, [place] Pulmonary: Yes: COPD ...: No Psych: Yes: Addictions (Alcohol and cocaine) - Past Surgical History Past Surgical History: Yes: AICD, Tonsillectomy, Tubal Ligation - Alcohol/Substance Use Hx Alcohol Use: Yes - Smoking History Smoking history: Current every day smoker Have you smoked in the past 12 months: Yes Aproximately how many cigarettes per day: 10 If you are a former smoker, when did you quit?: UNK - Social History ADL: Independent History of Recent Travel: No Home Medications - Allergies Allergies/Adverse Reactions: Allergies Allergy/AdvReac Type Severity Reaction Status Date / Time No Known Allergies Allergy Verified 10/09/16 16:37 - Home Medications Home Medications: Ambulatory Orders Aspirin Coated [Ecotrin -] 81 mg PO DAILY #30 tablet.ec 05/21/16 Furosemide [Lasix -] 40 mg PO BID@0600,1400 #60 tablet 05/21/16 Potassium Chloride [K-Dur -] 20 meq PO DAILY #30 tablet.er 05/21/16 Family Disease History - Family Disease History Family Disease History: CA: Father (colon cancer) Review of Systems - Review of Systems Constitutional: reports: No Symptoms Eyes: reports: No Symptoms HENT: reports: No Symptoms Neck: reports: No Symptoms Cardiovascular: reports: Chest Pain, Edema Gastrointestinal: reports: No Symptoms Genitourinary: reports: No Symptoms Breasts: reports: No Symptoms Reported Musculoskeletal: reports: No Symptoms Integumentary: reports: No Symptoms Neurological: reports: No Symptoms Endocrine: reports: No Symptoms Hematology/Lymphatic: reports: No Symptoms Psychiatric: reports: No Symptoms Vital Signs: Vital Signs Temperature 98.7 F 10/10/16 06:00 Pulse Rate 70 10/10/16 06:00 Respiratory Rate 20 10/10/16 06:00 Blood Pressure 100/73 10/10/16 06:00 O2 Sat by Pulse Oximetry (%) 96 10/09/16 22:40 Constitutional: Yes: Well Nourished, No Distress, Calm Eyes: Yes: WNL, Conjunctiva Clear, EOM Intact HENT: Yes: WNL, Atraumatic, Normocephalic Neck: Yes: WNL, Supple, Trachea Midline Respiratory: Yes: WNL, Regular, CTA Bilaterally Gastrointestinal: Yes: WNL, Normal Bowel Sounds Renal/: Yes: WNL Cardiovascular: Yes: WNL, Regular Rate and Rhythm Musculoskeletal: Yes: WNL Extremities: Yes: WNL Edema: LLE: 1+, RLE: 1+ Integumentary: Yes: WNL Neurological: Yes: WNL, Alert, Oriented ...Motor Strength: WNL Psychiatric: Yes: WNL, Alert, Oriented - Other Data Labs, Other Data: INR, PTT INR 1.33 (0.82-1.09) H 10/09/16 16:54 Laboratory Tests 10/09/16 10/09/16 10/09/16 16:54 16:54 16:54 WBC 6.6 RBC 4.81 Hgb 13.8 Hct 42.3 MCV 87.9 MCHC 32.5 RDW 15.7 H Plt Count 160 MPV 9.4 Neutrophils % 43.4 Lymphocytes % 45.5 H Monocytes % 8.4 Eosinophils % 1.9 D Basophils % 0.8 Differential Comment Slide scanned Platelet Estimate Adequate Platelet Comment Few giant plts INR 1.33 H PTT (Actin FS) 30.3 Sodium 141 Potassium 3.5 Chloride 107 Carbon Dioxide 25 Anion Gap 9 BUN 12 Creatinine 0.9 Creat Clearance w eGFR > 60 Random Glucose 107 H D Lactic Acid Calcium 8.5 Total Bilirubin 1.5 H AST 55 H ALT 46 D Alkaline Phosphatase 99 D Creatine Kinase Troponin I < 0.02 B-Natriuretic Peptide Total Protein 7.2 Albumin 3.6 Serum , Qual Urine Color Urine Appearance Urine pH Ur Specific [place] Urine Protein Urine Glucose (UA) Urine Ketones Urine Blood Urine Nitrite Urine Bilirubin Urine Urobilinogen Ur Leukocyte Esterase Urine RBC Urine WBC Ur Epithelial Cells Urine Bacteria Urine Mucus Opiates Screen Methadone Screen Barbiturate Screen Phencyclidine Screen Ur Amphetamines Screen MDMA (Ecstasy) Screen Benzodiazepines Screen Cocaine Screen U Marijuana (THC) Screen Blood Type Antibody Screen 10/09/16 10/09/16 10/09/16 16:54 16:54 16:54 WBC RBC Hgb Hct MCV MCHC RDW Plt Count MPV Neutrophils % Lymphocytes % Monocytes % Eosinophils % Basophils % Differential Comment Platelet Estimate Platelet Comment INR PTT (Actin FS) Sodium Potassium Chloride Carbon Dioxide Anion Gap BUN Creatinine Creat Clearance w eGFR Random Glucose Lactic Acid Calcium Total Bilirubin AST ALT Alkaline Phosphatase Creatine Kinase Troponin I B-Natriuretic Peptide 3642.68 H Total Protein Albumin Serum , Qual Negative Urine Color [place]ad[place] Urine Appearance Clear Urine pH 5.0 Ur Specific [place] 1.020 Urine Protein 1+ H Urine Glucose (UA) Negative Urine Ketones Negative Urine Blood Negative Urine Nitrite Negative Urine Bilirubin Negative Urine Urobilinogen 4.0 e.u/dl H Ur Leukocyte Esterase Negative Urine RBC 2 Urine WBC 4 Ur Epithelial Cells Rare Urine Bacteria Rare Urine Mucus Rare Opiates Screen Methadone Screen Barbiturate Screen Phencyclidine Screen Ur Amphetamines Screen MDMA (Ecstasy) Screen Benzodiazepines Screen Cocaine Screen U Marijuana (THC) Screen Blood Type O POSITIVE Antibody Screen Negative 10/09/16 10/09/16 10/09/16 17:23 17:23 21:00 WBC RBC Hgb Hct MCV MCHC RDW Plt Count MPV Neutrophils % Lymphocytes % Monocytes % Eosinophils % Basophils % Differential Comment Platelet Estimate Platelet Comment INR PTT (Actin FS) Sodium Potassium Chloride Carbon Dioxide Anion Gap BUN Creatinine Creat Clearance w eGFR Random Glucose Lactic Acid 2.0 Calcium Total Bilirubin AST ALT Alkaline Phosphatase Creatine Kinase 109 Troponin I < 0.02 B-Natriuretic Peptide Total Protein Albumin Serum , Qual Urine Color Urine Appearance Urine pH Ur Specific [place] Urine Protein Urine Glucose (UA) Urine Ketones Urine Blood Urine Nitrite Urine Bilirubin Urine Urobilinogen Ur Leukocyte Esterase Urine RBC Urine WBC Ur Epithelial Cells Urine Bacteria Urine Mucus Opiates Screen Negative Methadone Screen Negative Barbiturate Screen Negative Phencyclidine Screen Negative Ur Amphetamines Screen Negative MDMA (Ecstasy) Screen Negative Benzodiazepines Screen Positive Cocaine Screen Positive U Marijuana (THC) Screen Negative Blood Type Antibody Screen Imaging - Results Chest X-ray: Image Reviewed (cm icd no i/e) EKG: Image Reviewed (ectopic atrial rhythm vpc lvh rep abn) Problem List - Problems (1) Benzodiazepine abuse, episodic Code(s): F13.10 - SEDATIVE, HYPNOTIC OR ANXIOLYTIC ABUSE, UNCOMPLICATED (2) Cocaine abuse Code(s): F14.10 - COCAINE ABUSE, UNCOMPLICATED (3) Congestive heart failure (CHF) Code(s): I50.9 - HEART FAILURE, UNSPECIFIED Qualifiers: Congestive heart failure type: unspecified congestive heart failure type Congestive heart failure chronicity: acute Qualified Code(s): I50.9 - Heart failure, unspecified (4) Elevated liver enzymes Code(s): R74.8 - ABNORMAL LEVELS OF OTHER SERUM ENZYMES (5) Family history of colon cancer Code(s): Z80.0 - FAMILY HISTORY OF MALIGNANT NEOPLASM OF DIGESTIVE ORGANS Assessment/Plan cocaine /etoh abuse cp sx chf systolic htn hld ashd plan; detox as per protocol lasix teri i asa echo no bb due to cocaine use keep ldl below 70
[2016-10-10] MEDS: FOLIC ACID 1 MG TABLET (FP) PO SCH (10:00)
[2016-10-10] MEDS: ASPIRIN COATED 81 MG TABLET.EC PO SCH (10:01)
[2016-10-10] MEDS: FUROSEMIDE 40 MG/4 ML INJECTABLE VIAL IVPUSH SCH (10:01)
[2016-10-10 10:15] LABS: MAGNESIUM 1.9 mg/dL (1.8-2.4)
[2016-10-10] MEDS ORDERED: chlordiazePOXIDE HCL 25 MG CAPSULE PO SCH (11:00)
--- NOTE | 2016-10-10 12:43 | EKG ---
Test Reason : Blood Pressure : / mmHG Vent. Rate : 078 BPM Atrial Rate : 078 BPM P-R Int : 174 ms QRS Dur : 102 ms QT Int : 474 ms P-R-T Axes : 059 -27 116 degrees QTc Int : 540 ms SINUS RHYTHM WITH OCCASIONAL PREMATURE VENTRICULAR COMPLEXES iNTRA ATRIAL CONDUCTION ABNORMALITY LEFT VENTRICULAR HYPERTROPHY LEFT AXIS DEVIATION SLURRING OF UPSLOPE OF THE QRS COMPLEXES IN THE LIMB LEADS T WAVE ABNORMALITY, CONSIDER LATERAL ISCHEMIA PROLONGED QT ABNORMAL ECG WHEN COMPARED WITH ECG OF 09-OCT-2016 17:23, SINUS RHYTHM HAS REPLACED ECTOPIC ATRIAL RHYTHM T WAVE INVERSION NOW EVIDENT IN LATERAL LEADS OR EXCESS NEEDS TO BE EXCLUDED. PLEASE CORELATE CLINICALLY. Confirmed by NATHALIA THRASHER MD ([id number]) on 10/10/2016 12:43:00 PM Referred By: Lisbeth JAQUEZ Confirmed By:NATHALIA THRASHER MD
--- NOTE | 2016-10-10 14:21 | EKG ---
Test Reason : Blood Pressure : / mmHG Vent. Rate : 073 BPM Atrial Rate : 073 BPM P-R Int : 210 ms QRS Dur : 100 ms QT Int : 478 ms P-R-T Axes : -41 -24 094 degrees QTc Int : 526 ms LOW ATRIAL VS ACCELERATED JUNCTIOAL RHYTHM( INVERTED P WAVES IN LEADSII, III AND aVF) OCCASIONAL SINGLE VENTRICULAR PREMATUR BEATS VOLTAGE CRITERIA FOR LEFT VENTRICULAR HYPERTROPHY INTRA ATRIAL CONDUCTION ABNORMALITY NONSPECIFIC T WAVE ABNORMALITY PROLONGED QTC INTERVAL ABNORMAL ECG WHEN COMPARED WITH ECG OF 21-MAY-2016 14:12, ECTOPIC ATRIAL RHYTHM HAS REPLACED SINUS RHYTHM NONSPECIFIC T WAVE ABNORMALITY NO LONGER EVIDENT IN INFERIOR LEADS T WAVE INVERSION NO LONGER EVIDENT IN LATERAL LEADS CORELATE CLINICALLY Confirmed by NATHALIA THRASHER MD ([id number]) on 10/10/2016 2:21:15 PM Referred By: Confirmed By:NATHALIA THRASHER MD
[2016-10-11] MEDS: HEPARIN NA (PORCINE) 5,000 UNITS/ML 1ML VIAL SQ SCH ×3 (06:37→21:12)
--- NOTE | 2016-10-11 09:33 | PN ---
Progress Note, Physician Chief Complaint: feeling "better" TELE: NSR with intermittent single PVCs History of Present Illness: UTOX + COCAINE - Current Medication List Current Medications: Active Medications Aspirin (Ecotrin -) 81 mg PO DAILY [facility] Last Admin: 10/10/16 10:01 Dose: 81 mg Chlordiazepoxide HCl (Librium -) 25 mg PO Q4H PRN PRN Reason: WITHDRAWAL(CONT SUBST) Stop: 10/13/16 08:22 Folic Acid (Folic Acid -) 1 mg PO DAILY [facility] Last Admin: 10/10/16 10:00 Dose: 1 mg Furosemide (Lasix Injection -) 40 mg IVPUSH DAILY [facility] Last Admin: 10/10/16 10:01 Dose: 40 mg Heparin Sodium (Porcine) (Heparin -) 5,000 unit SQ TID [facility] Last Admin: 10/11/16 06:37 Dose: 5,000 unit Thiamine HCl (Vitamin B1 -) 100 mg PO DAILY [facility] - Objective Vital Signs: Vital Signs Temperature 97.6 F 10/11/16 06:00 Pulse Rate 63 10/11/16 06:00 Respiratory Rate 20 10/11/16 06:00 Blood Pressure 91/66 10/11/16 06:00 O2 Sat by Pulse Oximetry (%) 96 10/09/16 22:40 Constitutional: Yes: Calm Eyes: Yes: Conjunctiva Clear Cardiovascular: Yes: Regular Rate and Rhythm Respiratory: Yes: Other (slight decreased breath sounds at bases. No wheezing.) Gastrointestinal: Yes: Soft Edema: No Neurological: Yes: Alert Labs: INR, PTT INR 1.33 (0.82-1.09) H 10/09/16 16:54 Laboratory Tests 05/21/16 10/09/16 10/09/16 21:30 16:54 16:54 WBC 6.6 Hgb 13.8 Plt Count 160 Sodium 141 Potassium 3.5 BUN 12 Creatinine 0.9 Troponin I < 0.02 < 0.02 B-Natriuretic Peptide Benzodiazepines Screen Cocaine Screen 10/09/16 10/09/16 10/09/16 16:54 17:23 21:00 WBC Hgb Plt Count Sodium Potassium BUN Creatinine Troponin I < 0.02 B-Natriuretic Peptide 3642.68 H Benzodiazepines Screen Positive Cocaine Screen Positive - ....Imaging X-ray: Image Reviewed EKG: Image Reviewed Assessment/Plan 56 year old woman with a history of HTN, HLD, presumed non-ischemic cardiomyopathy (patient report) s/p ICD (which she states was turned off at her request because it was shocking her in the past and the doctors wouldn't remove it), COPD, polysubstance abuse, non-adherence with medication now admitted with acute on chronic exacerbation of chronic systolic CHF. REC: -try to obtain old records, although they [place] state and patient is poor historian -Continue IV Lasix, volume status is improving. Echo today. -Hold BB (Cocaine +) -Will try to introduce low dose PEPITO/ARB if BP allows over next few days; could also be done as outpatient if she can f/u reliably -Strongly consider discharge to rehab facility once euvolemic.
[2016-10-11] MEDS: ASPIRIN COATED 81 MG TABLET.EC PO SCH (10:02)
[2016-10-11] MEDS: FUROSEMIDE 40 MG/4 ML INJECTABLE VIAL IVPUSH SCH (10:02)
[2016-10-11] MEDS: THIAMINE HCL 100 MG TABLET (FP) PO SCH (10:02)
[2016-10-11] MEDS: FOLIC ACID 1 MG TABLET (FP) PO SCH (10:02)
[2016-10-11] MEDS ORDERED: chlordiazePOXIDE HCL 25 MG CAPSULE PO SCH (11:00)
--- NOTE | 2016-10-11 15:29 | PN ---
Physical Exam: SUBJECTIVE: Patient seen and examined today. Patient endorses cravings for drugs. Patient still complains of SOB, quick resting pulse Ox shows 99%. No fevers, no chills, no SOB. When questioning patient about the ICD, patient stated that she wanted the ICD to be turned off because she was unable to tolerate the shock. Patient expresses understanding of the dangers of not having the ICD. She states that she has would have preferred to than to be shocked. She also states that she has "lived a good life". OBJECTIVE: Vital Signs Period Temp Pulse Resp BP Sys/Bravo Pulse Ox Last 24 Hr 97 F-98.4 F 63-74 20-20 91-117/63-76 GENERAL: The patient is awake, alert, and fully oriented, in no acute distress. EYES: PERRL, extraocular movements intact NECK: Trachea midline, full range of motion, supple. LUNGS: Breath sounds equal, clear to auscultation bilaterally, no wheezes, no crackles, no accessory muscle use. HEART: Regular rate and rhythm, S1, S2 without murmur, rub or gallop. ABDOMEN: Soft, nontender, nondistended, normoactive bowel sounds, no guarding, no rebound, no hepatosplenomegaly, no masses. EXTREMITIES: 2+ pulses, warm, well-perfused, no edema. NEUROLOGICAL: Cranial nerves II through XII grossly intact. Normal speech, gait not observed. Active Medications Generic Name Dose Route Start Last Admin Trade Name Freq PRN Reason Stop Dose Admin Aspirin 81 mg 10/10/16 10:00 10/11/16 10:02 Ecotrin - PO 81 mg DAILY [facility]UDMILA Administration Chlordiazepoxide HCl 25 mg 10/10/16 08:23 Librium - PO 10/13/16 08:22 Q4H PRN WITHDRAWAL(CONT SUBST) Folic Acid 1 mg 10/10/16 10:00 10/11/16 10:02 Folic Acid - PO 1 mg DAILY [facility]UDMILA Administration Furosemide 40 mg 10/10/16 10:00 10/11/16 10:02 Lasix Injection - IVPUSH 40 mg DAILY [facility]UDMILA Administration Heparin Sodium (Porcine) 5,000 unit 10/10/16 06:00 10/11/16 06:37 Heparin - SQ 5,000 unit TID LIUDMILA Administration Lisinopril 5 mg 10/12/16 10:00 Prinivil PO DAILY LIUDMILA Thiamine HCl 100 mg 10/11/16 10:00 10/11/16 10:02 Vitamin B1 - PO 100 mg DAILY LIUDMILA Administration ASSESSMENT/PLAN: Patient is a 56 year old female with a PMHx of CAD S/P CA x 2, Ischemic Cardiomyopathy (EF 21%), with ICD (turned off as per patients request), Systolic CHF, and active cocaine abuse who presents from home with chest pain found to be in acute CHF exacerbation. # Acute CHF Exacerbation - Patients last echocardiogram (05/2016) shows global wall hypokinesis and EF of 21%, will repeat echo - Patient admitted to diuretic noncompliance for 3 weeks, and on presentation had SOB, BLLE edema, JVD, with high BNP - Currently patient's volume status is improving, lungs are clear, no BLLE edema , weight is coming down - Continue patient on Lasix 40mg IV - Monitor I&Os, daily weight - Avoid beta blockers in this patient, active cocaine abuse - Sodium controlled diet, limited fluid intake - Cardiology recommends addition of ACEi, added lisinopril 5mg PO QD if SBP is above 100 # Chest pain - Negative troponins x2 in ER, no new EKG changes - Due to atypical nature of CP and low Heart score, likely secondary to Cocaine Abuse - Continue ASA - Patient is not on statins at the moment - Patient was admitted to telemetry floor for monitoring - We will avoid beta blockers in this patient, in active cocaine users, will cause unopposed alpha vasoconstriction # Cocaine Abuse -Currently at [facility] detox -Detox consult recommends referral back to [facility] - Will call [facility] when ready to discharge patient #Alcohol Abuse -Patient was started on folic acid, thiamine, CIWA protocol -Patient currently has no withdrawal symptoms #Elevated liver enzymes -With history of alcohol abuse, possibly due to underlying chronic liver disease -Patient refused labs on Day 2, unable to trend LFTs -If LFTs tomorrow are still high, consider RUQ U/S #History of CAD -Continue patient on ASA 81mg PO QD #FEN -Fluids: No IV fluids -Electrolytes: Monitor, WNL -Diet: Sodium controlled diet #Prophylaxis -Heparin 5000 units SQ TID #Disposition -Admitted to Tele - Tele reviewed, no alarming events overnight -Possible d/c tomorrow #Code Status -Full Code Visit type - Emergency Visit Emergency Visit: No - New Patient This patient is new to me today: No - Critical Care Critical Care patient: No - Discharge Referral Referred to [facility] Med P.C.: No
--- NOTE | 2016-10-11 18:57 | PN ---
Teaching Attending Note Name of Resident: Lena Muhammad ATTENDING PHYSICIAN STATEMENT I saw and evaluated the patient. I reviewed the resident's note and discussed the case with the resident. I agree with the resident's findings and plan as documented. SUBJECTIVE: Patient is comfortable, VAN, no shortness of breath at rest. OBJECTIVE: Vital Signs Temperature 97.8 F 10/11/16 17:00 Pulse Rate 71 10/11/16 17:00 Respiratory Rate 20 10/11/16 17:00 Blood Pressure 110/66 10/11/16 17:00 O2 Sat by Pulse Oximetry (%) 96 10/09/16 22:40 PE: per resident's note CBCD WBC 6.6 K/mm3 (4.0-10.0) 10/09/16 16:54 RBC 4.81 M/mm3 (3.60-5.2) 10/09/16 16:54 Hgb 13.8 GM/dL (10.7-15.3) 10/09/16 16:54 Hct 42.3 % (32.4-45.2) 10/09/16 16:54 MCV 87.9 fl (80-96) 10/09/16 16:54 MCHC 32.5 g/dl (32.0-36.0) 10/09/16 16:54 RDW 15.7 % (11.6-15.6) H 10/09/16 16:54 Plt Count 160 K/MM3 (134-434) 10/09/16 16:54 MPV 9.4 fl (7.5-11.1) 10/09/16 16:54 CMP Sodium 141 mmol/L (136-145) 10/09/16 16:54 Potassium 3.5 mmol/L (3.5-5.1) 10/09/16 16:54 Chloride 107 mmol/L (98-107) 10/09/16 16:54 Carbon Dioxide 25 mmol/L (21-32) 10/09/16 16:54 Anion Gap 9 (8-16) 10/09/16 16:54 BUN 12 mg/dL (7-18) 10/09/16 16:54 Creatinine 0.9 mg/dL (0.55-1.02) 10/09/16 16:54 Creat Clearance w eGFR > 60 (>60) 10/09/16 16:54 Random Glucose 107 mg/dL (74-106) H D 10/09/16 16:54 Calcium 8.5 mg/dL (8.5-10.1) 10/09/16 16:54 Total Bilirubin 1.5 mg/dL (0.2-1.0) H 10/09/16 16:54 AST 55 U/L (15-37) H 10/09/16 16:54 ALT 46 U/L (12-78) D 10/09/16 16:54 Alkaline Phosphatase 99 U/L (45-117) D 10/09/16 16:54 Total Protein 7.2 g/dl (6.4-8.2) 10/09/16 16:54 Albumin 3.6 g/dl (3.4-5.0) 10/09/16 16:54 CARDIAC ENZYMES Creatine Kinase 109 IU/L (26-192) 10/09/16 17:23 Troponin I < 0.02 ng/ml (0.00-0.05) 10/09/16 17:23 Current Medications Generic Name Dose Route Start Last Admin Trade Name Richardq PRN Reason Stop Dose Admin Aspirin 81 mg 10/10/16 10:00 10/11/16 10:02 Ecotrin - PO 81 mg DAILY [facility]IL[facility] Administration Chlordiazepoxide HCl 25 mg 10/10/16 08:23 Librium - PO 10/13/16 08:22 Q4H PRN WITHDRAWAL(CONT SUBST) Folic Acid 1 mg 10/10/16 10:00 10/11/16 10:02 Folic Acid - PO 1 mg DAILY [facility]ILA Administration Furosemide 40 mg 10/10/16 10:00 10/11/16 10:02 Lasix Injection - IVPUSH 40 mg DAILY [facility]IL[facility] Administration Heparin Sodium (Porcine) 5,000 unit 10/10/16 06:00 10/11/16 18:44 Heparin - SQ Not Given TID LIUDMILA Lisinopril 5 mg 10/12/16 10:00 Prinivil PO DAILY [facility] Thiamine HCl 100 mg 10/11/16 10:00 10/11/16 10:02 Vitamin B1 - PO 100 mg DAILY [facility]UDMILA Administration Home Medications Medication Instructions Recorded Aspirin Coated [Ecotrin -] 81 mg PO DAILY #30 tablet.ec 05/21/16 Furosemide [Lasix -] 40 mg PO BID@0600,1400 #60 tablet 05/21/16 Potassium Chloride [K-Dur -] 20 meq PO DAILY #30 tablet.er 05/21/16 Echo ( last one in 05/26 with severely reduced EF , dilated LV, severe TR) ASSESSMENT AND PLAN: 56 y/o Lady with h/o CAD , s/p OR x 2, Ischemic CMP with severely reduced EF, and ICD ( turned off per her request) , h/o ETOH and cocaine abuse ( active ) , and non compliance who presented from home ( not [facility] ) with CP . She was found to have acute S CHF exacerbation # Acute on chronic Systolic CHF. Patient is not taking her meds at home( lasix ) , cont lasix 40 daily , Is and Os, daily weight, cardiology consult appreciated # Atypical chest pain due to cocaine use . No change in EKG, trop Neg x 2 , on Asa continue. NO BB since cocaine user # ETOH abuse : On Librium, would like to go to detox , on Thiamine ,folic acid # Mildly Elevated Liver enzymes , US of Liver will order DVT PX : SQ heparin
[2016-10-12] MEDS: HEPARIN NA (PORCINE) 5,000 UNITS/ML 1ML VIAL SQ SCH ×2 (05:18→14:28)
[2016-10-12 07:25] LABS: MCH 28.8 pg (25.7-33.7); MCHC 32.5 g/dl (32.0-36.0); MEAN CELL VOLUME 88.5 fl (80-96); MEAN PLT VOLUME 9.6 fl (7.5-11.1); PLATELET COUNT 144 K/MM3 (134-434); RDW 15.9 % (11.6-15.6)
[2016-10-12 08:00] LABS: ALBUMIN 3.5 g/dl (3.4-5.0); ANION GAP 8 (8-16); BILIRUBIN,TOTAL 1.3 mg/dL (0.2-1.0); CALCIUM 9.1 mg/dL (8.5-10.1); CO2 32 mmol/L (21-32); CREATININE 0.8 mg/dL (0.55-1.02); GLUCOSE,RANDOM 88 mg/dL (74-106); SGOT/AST 49 U/L (15-37); SGPT/ALT 42 U/L (12-78); TOT PROT 7.1 g/dl (6.4-8.2)
[2016-10-12 08:01] LABS: ALK PHOS 115 U/L (45-117)
--- NOTE | 2016-10-12 08:33 | PN ---
Progress Note, Physician Chief Complaint: Feeling better TELE: NSR, PVCS ECHO: Severe global LV dysfx; MV prolapse with severe MR - Current Medication List Current Medications: Active Medications Aspirin (Ecotrin -) 81 mg PO DAILY [facility] Last Admin: 10/11/16 10:02 Dose: 81 mg Chlordiazepoxide HCl (Librium -) 25 mg PO Q4H PRN PRN Reason: WITHDRAWAL(CONT SUBST) Stop: 10/13/16 08:22 Folic Acid (Folic Acid -) 1 mg PO DAILY [facility] Last Admin: 10/11/16 10:02 Dose: 1 mg Furosemide (Lasix Injection -) 40 mg IVPUSH DAILY [facility] Last Admin: 10/11/16 10:02 Dose: 40 mg Heparin Sodium (Porcine) (Heparin -) 5,000 unit SQ TID [facility] Last Admin: 10/12/16 05:18 Dose: Not Given Lisinopril (Prinivil) 5 mg PO DAILY [facility] Thiamine HCl (Vitamin B1 -) 100 mg PO DAILY [facility] Last Admin: 10/11/16 10:02 Dose: 100 mg - Objective Vital Signs: Vital Signs Temperature 98 F 10/12/16 06:00 Pulse Rate 72 10/12/16 06:00 Respiratory Rate 19 10/12/16 06:00 Blood Pressure 102/62 10/12/16 06:00 O2 Sat by Pulse Oximetry (%) 96 10/09/16 22:40 Constitutional: Yes: Calm Cardiovascular: Yes: Regular Rate and Rhythm Respiratory: Yes: Rhonchi Gastrointestinal: Yes: Soft Edema: No Neurological: Yes: Alert Labs: CBC, BMP 10/12/16 05:35 10/12/16 05:35 INR, PTT INR 1.33 (0.82-1.09) H 10/09/16 16:54 - ....Imaging EKG: Image Reviewed Assessment/Plan Assessment/Plan 56 year old woman with a history of HTN, HLD, severe MR, presumed non-ischemic cardiomyopathy (patient report) s/p ICD (which she states was turned off at her request because it was shocking her in the past and the doctors wouldn't remove it), COPD, polysubstance abuse, non-adherence with medication now admitted with acute on chronic exacerbation of chronic systolic CHF. REC: -try to obtain old records, although they are [place] of state and patient is poor historian -Continue IV Lasix, volume status is improving. -Hold BB (Cocaine +) -PEPITO-I introduced -If patient can demonstrate compliance and successfully rehabs then can consider CT surgery eval for MV repair/replacement. -Strongly consider discharge to rehab facility once euvolemic.
[2016-10-12] MEDS ORDERED: LISINOPRIL 5 MG TABLET (FP) PO SCH ×2 (10:00→11:50)
[2016-10-12] MEDS: FUROSEMIDE 40 MG/4 ML INJECTABLE VIAL IVPUSH SCH (10:26)
[2016-10-12] MEDS: THIAMINE HCL 100 MG TABLET (FP) PO SCH (10:26)
[2016-10-12] MEDS: ASPIRIN COATED 81 MG TABLET.EC PO SCH (10:26)
[2016-10-12] MEDS: FOLIC ACID 1 MG TABLET (FP) PO SCH (10:26)
[2016-10-12] MEDS ORDERED: chlordiazePOXIDE 5 MG CAPSULE PO SCH (11:00)
[2016-10-12] MEDS ORDERED: FUROSEMIDE 40 MG TABLET (FP) PO SCH (12:00)
[2016-10-12 14:26] VITALS: BP 107/74; PULSE 72
[2016-10-12 14:27] VITALS: TEMP 98.8
--- NOTE | 2016-10-12 19:04 | DS ---
Physical Exam: SUBJECTIVE: Patient seen and examined. Patient is ready to go home. No fevers, chills, CP. Still endorses chronic shortness of breath, but this is at baseline. Patient saw pastoral care today and had extensive counseling about quitting alcohol and cocaine, and going to rehab. OBJECTIVE: Vital Signs Period Temp Pulse Resp BP Sys/Bravo Pulse Ox Last 24 Hr 98 F-98.8 F 64-74 18-20 86-111/51-74 PHYSICAL EXAM GENERAL: The patient is awake, alert, and fully oriented, in no acute distress. Clinically looks euvolemic EYES: PERRL, extraocular movements intact LUNGS: Breath sounds equal, clear to auscultation bilaterally, no wheezes, no crackles, no accessory muscle use. HEART: Regular rate and rhythm, S1, S2 without murmur, rub or gallop. ABDOMEN: Soft, nontender, nondistended, normoactive bowel sounds EXTREMITIES: 2+ pulses, warm, well-perfused, no edema. NEUROLOGICAL: AAOx3, No Facial Droop, Cranial nerves II through XII grossly intact. Normal speech, gait not observed. LABS Laboratory Results - last 24 hr 10/12/16 10/12/16 05:35 05:35 WBC 7.0 RBC 5.50 H Hgb 15.8 H D Hct 48.7 H D MCV 88.5 MCHC 32.5 RDW 15.9 H Plt Count 144 MPV 9.6 Sodium 140 Potassium 3.8 Chloride 100 Carbon Dioxide 32 D Anion Gap 8 BUN 18 D Creatinine 0.8 Creat Clearance w eGFR > 60 Random Glucose 88 Calcium 9.1 Total Bilirubin 1.3 H AST 49 H ALT 42 Alkaline Phosphatase 115 Total Protein 7.1 Albumin 3.5 Date of Admission: 10/09/16 Date of Discharge: 10/12/16 HOSPITAL COURSE: Patient is a 56 year old female with a PMHx of CAD S/P [place] x 2, Ischemic Cardiomyopathy (EF 21%), with ICD (turned off as per patients request), Systolic CHF, alcohol abuse, and active cocaine abuse who presents from home with sharp midsternal chest pain while using cocaine , radiating to L arm, associated with L arm numbness, L arm tingling. Patient also had not been taking her diuretics for 3 weeks, and presented with SOB and found to have bilateral lower extremity edema that has been getting worse admitted with the diagnosis of Acute on chronic CHF exacerbation. Acute on Chronic CHF Exacerbation. Patient admitted to diuretic noncompliance for 3 weeks, and on presentation had SOB, BLLE edema, JVD, with high BNP, received Lasix 20mg IV push in ER. Patient treated with Lasix 40mg IV QD. Throughout hospitalization, patient's volume status was improving, lungs are clear, no BLLE edema. Avoided beta blockers because of active cocaine abuse, but added Lisinopril 5mg PO QD Echocardiogram (on 10/11/16) which showed severe global wall hypokinesis of the left ventricle, moderate MVP, severe MR, severe TR, Atypical Chest Pain Negative troponins x2 in ER, no new EKG changes, likely secondary to Cocaine Abuse.Continue ASA 81mg PO QD, patient not on statins, consider starting outpatient.Patient was admitted to telemetry floor for monitoring, no acute events noted in the monitor. Other - Cocaine Abuse: Patient counseled on cocaine discontinuation - Alcohol Abuse: Patient was started on folic acid, thiamine, CIWA protocol, no symptoms of withdrawal during hospitalization - Elevated Liver Enzymes: Consider chronic liver disease with alcohol abuse, consider RUQ U/S as outpatient, F/up with GI The patient was discharged home, and [facility] will accept her for outpatient treatment, discussed with DR. Alan Huff. She will be assigned a counselor to help her get into an inpatient program ([facility] inpatient program was not accepting at time of discharge). Plan of care explained to the patient. She verbalized understanding. Minutes to complete discharge: 45 Discharge Summary Reason For Visit: COCAINE ABUSE, CONGESTIVE HEART FAILURE Current Active Problems Benzodiazepine abuse, episodic (Acute) Elevated liver enzymes (Chronic) Family history of colon cancer (Chronic) Procedures: Principal: None Condition: Improved - Instructions Diet, Activity, Other Instructions: You were admitted because your heart was not pumping properly. We gave you water pills, and you recovered. You still have a heart condition, and need to followup with your heart doctor (Dr. Sherman) in one week. Since you have mitral valve prolapse, you may need surgery to repair that, so please followup. We will send you home, and want you to go to [facility] in [facility] ([place] You will have a counselor there, who will help you get into a 28-day program. Please return to the Emergency Department if you experience any-more chest pain or unbearable shortness of breath. Referrals: Juan M Sherman MD [Staff Physician] - Walter Cornelius MD [Staff Physician] - Disposition: HOME - Home Medications Comprehensive Discharge Medication List: Ambulatory Orders Aspirin Coated [Ecotrin -] 81 mg PO DAILY #30 tablet.ec 05/21/16 Potassium Chloride [K-Dur -] 20 meq PO DAILY #30 tablet.er 05/21/16 Folic Acid - 1 mg PO DAILY tablet 10/12/16 Furosemide [Lasix -] 40 mg PO DAILY #15 tablet 10/12/16 Lisinopril [Prinivil] 2.5 mg PO DAILY #20 tablet 10/12/16 Thiamine HCl [Vitamin B1 -] 100 mg PO DAILY tablet 10/12/16 This patient is new to me today: No Emergency Visit: No Critical Care patient: No - Discharge Referral Referred to [id number] Med P.C.: No Quality Measures-Exclusions - Heart Failure Reason LVF assessment not done: Prior echocardiogram done
== END 2016-10-12 17:39 | disposition home or self-care (01) | DRG 194 ==
LOC: JER 16:26 → JERBED 21:25 → J4W 10-10 00:23
PROVIDERS: ADMIT Internal Medicine; ATTEND Internal Medicine
PROC: HZ2ZZZZ Detoxification Services for Substance Abuse Treatment (ICD-10-PCS; principal; 2016-10-10)
DX: I50.23 Acute on chronic systolic (congestive) heart failure (principal); I25.10 Atherosclerotic heart disease of native coronary artery without angina pectoris; F14.20 Cocaine dependence, uncomplicated; T40.5X1A Poisoning by cocaine, accidental (unintentional), initial encounter; R07.89 Other chest pain; Z91.14 Patient's other noncompliance with medication regimen; Z95.810 Presence of automatic (implantable) cardiac defibrillator; I25.5 Ischemic cardiomyopathy; F10.20 Alcohol dependence, uncomplicated; I36.1 Nonrheumatic tricuspid (valve) insufficiency; I25.2 Old myocardial infarction; R74.0 Nonspecific elevation of levels of transaminase and lactic acid dehydrogenase [LDH]; I45.81 Long QT syndrome; I34.0 Nonrheumatic mitral (valve) insufficiency; I34.1 Nonrheumatic mitral (valve) prolapse; F17.210 Nicotine dependence, cigarettes, uncomplicated; Y92.89 Other specified places as the place of occurrence of the external cause; Z80.0 Family history of malignant neoplasm of digestive organs
CPT/HCPCS: 36415; 71010-TC; 80053; 80307; 81003; 81015; 82550; 83605; 83735; 83880; 84484; 84703; 85025; 85027; 85610; 85730; 86850; 86900; 86901; 93005; 93010; 93306-TC; 93970-TC; 99284-25; J1644

== ENCOUNTER 2016-10-23 14:05 | Emergency (ER) | payer BC ==
[2016-10-23 14:13] VITALS: BP 103/74; PULSE 80; TEMP 98.2; BMI 27.1
--- NOTE | 2016-10-23 15:21 | PDOC ---
History of Present Illness - General Chief Complaint: Irregular Heart Beat Stated Complaint: SENT BY PCP Time Seen by Provider: 10/23/16 14:54 History Source: Patient - History of Present Illness Initial Comments: Patient is a 56 y.o. 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 Patient denies any current ICM symptoms including shortness of breath, lightheadedness or palpitations. Past History - Past Medical History Allergies/Adverse Reactions: Allergies Allergy/AdvReac Type Severity Reaction Status Date / Time No Known Allergies Allergy Verified 10/23/16 14:11 Home Medications: Ambulatory Orders Aspirin Coated [Ecotrin -] 81 mg PO DAILY #30 tablet.ec 05/21/16 Potassium Chloride [K-Dur -] 20 meq PO DAILY #30 tablet.er 05/21/16 Folic Acid - 1 mg PO DAILY tablet 10/12/16 Furosemide [Lasix -] 40 mg PO DAILY #15 tablet 10/12/16 Lisinopril [Prinivil] 2.5 mg PO DAILY #20 tablet 10/12/16 Thiamine HCl [Vitamin B1 -] 100 mg PO DAILY tablet 10/12/16 Cardiac Disorders: Yes (s/p AR) COPD: Yes CHF: Yes HTN: Yes - Surgical History Cardiac Surgery: Yes (aicd) - Immunization History Immunization Up to Date: Yes - Psycho/Social/Smoking Cessation Hx Anxiety: No Suicidal Ideation: No Smoking History: Current every day smoker Have you smoked in the past 12 months: Yes Number of Cigarettes Smoked Daily: 10 If you are a former smoker, when did you quit?: UNK Information on smoking cessation initiated: No 'Breaking Loose' booklet given: 10/10/16 Hx Alcohol Use: Yes Drug/Substance Use Hx: Yes Substance Use Type: Alcohol, Cocaine Hx Substance Use Treatment: Yes Review of Systems - Review of Systems Constitutional: No: Chills, Fever, Malaise, Weakness HEENTM: No: Blurred Vision, Tinnitus, Hearing Loss, Throat Pain Respiratory: No: Cough, Shortness of Breath, Stridor, Wheezing, Hemoptysis Cardiac (ROS): No: Chest Pain, Edema, Palpitations, Syncope ABD/GI: No: Constipated, Diarrhea, Nausea, Vomiting : No: Burning, Dysuria, Discharge, Frequency Musculoskeletal: No: Back Pain, Joint Swelling, Muscle Pain, Muscle Weakness Integumentary: No: Bruising, Dryness, Erythema, Lesions Neurological: No: Headache, Numbness, Tingling, Tremors Psychiatric: No: Anxiety, Depression All Other Systems: Reviewed and Negative *Physical Exam - Vital Signs Last Vital Signs Temp Pulse Resp BP Pulse Ox 98.2 F 80 18 103/74 99 10/23/16 14:11 10/23/16 14:11 10/23/16 14:11 10/23/16 14:11 10/23/16 14:11 - Physical Exam General Appearance: Yes: Nourished, Appropriately Dressed HEENT: positive: EOMI, NICK Neck: positive: Trachea midline, Supple Respiratory/Chest: positive: Lungs Clear, Normal Breath Sounds Cardiovascular: positive: Regular Rhythm, Regular Rate, S1, S2 Gastrointestinal/Abdominal: positive: Normal Bowel Sounds, Soft Musculoskeletal: positive: Normal Inspection 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 [employer] loss [employer] representative interrogated patient's pacemaker and noted it was in working order and further noted that defibrillator was turned off 2.5 years previous at patient's request. Dr. Sherman contacted with results and asked for patient to follow-up in the next two weeks in his office. *DC/Admit/Observation/Transfer Diagnosis at time of Disposition: Cardiac abnormality - Discharge Dispostion Disposition: HOME Condition at time of disposition: Good Admit: No - Referrals Referrals: Juan M Sherman MD [Primary Care Provider] - - Patient Instructions Additional Instructions: Your Pacemaker is in good working condition. Please follow-up with Dr. Sherman as an outpatient within the next 2 weeks. Please return to the ED should you experience severe chest pain, shortness of breath or severe discomfort. - Attestations Physician Attestion: 10/23/16 18:52 I, Dr. Xenia Carvajal, attest that this document has been prepared under my direction and personally reviewed by me in its entirety. I further attest, that it accurately reflects all work, treatment, procedures and medical decision -making performed by me.
--- NOTE | 2016-10-23 16:53 | PDOC ---
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 pt denies sob no lightheaded. no palpitations or sob. pt refusing lab work today in ed. - Physicial Exam PE: 10/23/16 16:51 awake alert lungs clear no wheeizng. heart RRR no mrg. abd soft NT ND. ext wwp. nuero awake alert oriented x 3
--- NOTE | 2016-10-25 14:49 | EKG ---
Test Reason : Blood Pressure : / mmHG Vent. Rate : 077 BPM Atrial Rate : 077 BPM P-R Int : 188 ms QRS Dur : 098 ms QT Int : 452 ms P-R-T Axes : 048 -22 092 degrees QTc Int : 511 ms NORMAL SINUS RHYTHM LEFT ATRIAL ENLARGEMENT LEFT VENTRICULAR HYPERTROPHY T WAVE ABNORMALITY, CONSIDER LATERAL ISCHEMIA PROLONGED QT ABNORMAL ECG WHEN COMPARED WITH ECG OF 10-OCT-2016 09:39, PREMATURE VENTRICULAR COMPLEXES ARE NO LONGER PRESENT T WAVE INVERSION LESS EVIDENT IN LATERAL LEADS Confirmed by CINDY JUAREZ MD ([id number]) on 10/25/2016 2:48:58 PM Referred By: Confirmed By:CINDY JUAREZ MD
== END 2016-10-23 19:42 | disposition home or self-care (01) ==
LOC: JER 14:05
DX: I49.8 Other specified cardiac arrhythmias (principal); I42.9 Cardiomyopathy, unspecified; Z95.810 Presence of automatic (implantable) cardiac defibrillator; I25.2 Old myocardial infarction; I11.0 Hypertensive heart disease with heart failure; I50.9 Heart failure, unspecified; F17.210 Nicotine dependence, cigarettes, uncomplicated; J44.9 Chronic obstructive pulmonary disease, unspecified
CPT/HCPCS: 71010-TC; 93005; 93010; 99284-25

== ENCOUNTER 2016-11-15 16:12 | Inpatient (IN) | payer BC, OTHER ==
[2016-11-15 16:24] VITALS: BMI 27.3
[2016-11-15] MEDS ORDERED: ONDANSETRON 4 MG/2 ML VIAL IVPUSH ONE (16:36)
[2016-11-15] MEDS ORDERED: morphine CARPU-JECT 4 MG/1 ML DISP.SYRIN IVPUSH ONE (16:36)
[2016-11-15] MEDS ORDERED: ONDANSETRON 4 MG/2 ML VIAL ONE (16:54)
[2016-11-15] MEDS ORDERED: morphine CARPU-JECT 4 MG/1 ML DISP.SYRIN ONE (16:54)
--- NOTE | 2016-11-15 17:16 | RAPID ---
Physical Examination Vital Signs: Vital Signs Temperature 98 F 11/15/16 16:19 Pulse Rate 133 H 11/15/16 16:19 Respiratory Rate 25 H 11/15/16 16:19 Blood Pressure 114/79 11/15/16 16:19 O2 Sat by Pulse Oximetry (%) 100 11/15/16 16:19 Constitutional: Yes: Diaphoresis, Severe Distress, Obese Eyes: Yes: WNL HENT: Yes: WNL Neck: Yes: WNL, Supple Cardiovascular: Yes: Regular Rate and Rhythm Respiratory: Yes: WNL Gastrointestinal: Yes: WNL Rapid Response - Rapid Response Assessment: Rapid response was called this afternoon for pt in [facility]. Pt endorsed chest pain, was diaphoretic with HR of 133. 02 sat 97%. Pt immediately taken on stretcher to ED department.
[2016-11-15 17:17] LABS: BASOPHIL 0.5 % (0-2.0); MCH 29.4 pg (25.7-33.7); MCHC 32.5 g/dl (32.0-36.0); MEAN CELL VOLUME 90.4 fl (80-96); MEAN PLT VOLUME 9.9 fl (7.5-11.1); NEUTROPHILS 41.7 % (42.8-82.8); PLATELET COUNT 139 K/MM3 (134-434); RDW 17.3 % (11.6-15.6); WHITE BLOOD COUNT 7.1 K/mm3 (4.0-10.0)
[2016-11-15] MEDS ORDERED: FUROSEMIDE 40 MG/4 ML INJECTABLE VIAL IVPUSH ONE (17:28)
[2016-11-15] MEDS ORDERED: METOLAZONE 10 MG TABLET PO ONE (17:30)
[2016-11-15 17:38] LABS: INR 1.6 (0.82-1.09); PROTHROMBIN TIME (PATIENT) 17.8 SEC (9.98-11.88)
--- NOTE | 2016-11-15 17:45 | PDOC ---
History of Present Illness - General Chief Complaint: Shortness of Breath Stated Complaint: RAPID RESPONSE Time Seen by Provider: 11/15/16 16:33 History Source: Patient Exam Limitations: No Limitations - History of Present Illness Initial Comments: 11/15/16 17:40 The patient is a 56F with a PMH of CAD s/p 2 WV's, ischemic cardiomyopathy (EF 21%) w/ ICD, systolic CHF, cocaine abuse, and past IVDU who presents to the ED with complaints that she has PNA. The patient states like this is the exact same PNA that she had 1 month ago. She states that she has "fluid" her in her chest. She felt CP last night which started while she was having a beer and cigarettes. The CP is all over her chest, does not radiate, is alleviated by sleep, and movement makes it worse. She has not taken any of her medications today. She called EMS because of the pain but since they took long, she took the bus. Her last use of crack was last Sunday and/or Sunday. All: none Surg: noncontributory Soc: smoke cigarettes, drinks, and uses crack/cocaine. Past History - Past Medical History Allergies/Adverse Reactions: Allergies Allergy/AdvReac Type Severity Reaction Status Date / Time No Known Allergies Allergy Verified 10/23/16 14:11 Home Medications: Ambulatory Orders Aspirin Coated [Ecotrin -] 81 mg PO DAILY #30 tablet.ec 05/21/16 Potassium Chloride [K-Dur -] 20 meq PO DAILY #30 tablet.er 05/21/16 Folic Acid - 1 mg PO DAILY tablet 10/12/16 Furosemide [Lasix -] 40 mg PO DAILY #15 tablet 10/12/16 Lisinopril [Prinivil] 2.5 mg PO DAILY #20 tablet 10/12/16 Thiamine HCl [Vitamin B1 -] 100 mg PO DAILY tablet 10/12/16 Cardiac Disorders: Yes (s/p WV) COPD: Yes CHF: Yes HTN: Yes - Surgical History Cardiac Surgery: Yes (aicd) - Immunization History Immunization Up to Date: Yes - Psycho/Social/Smoking Cessation Hx Anxiety: No Suicidal Ideation: No Smoking History: Current every day smoker Have you smoked in the past 12 months: Yes Number of Cigarettes Smoked Daily: 10 If you are a former smoker, when did you quit?: UNK Information on smoking cessation initiated: No 'Breaking Loose' booklet given: 10/10/16 Hx Alcohol Use: Yes Drug/Substance Use Hx: Yes Substance Use Type: Alcohol, Cocaine Hx Substance Use Treatment: Yes Review of Systems - Review of Systems Able to Perform ROS?: Yes Is the patient limited Macedonian proficient: No Constitutional: Yes: Chills, Fever Respiratory: Yes: Shortness of Breath Cardiac (ROS): Yes: Chest Pain ABD/GI: Yes: Nausea, Other (abd pain). No: Constipated, Diarrhea, Vomiting Neurological: Yes: Headache (baseline), Numbness, Tingling, Weakness (in legs and arms, baseline) *Physical Exam - Vital Signs Last Vital Signs Temp Pulse Resp BP Pulse Ox 98 F 133 H 25 H 114/79 100 11/15/16 16:19 11/15/16 16:19 11/15/16 16:19 11/15/16 16:19 11/15/16 16:19 - Physical Exam General Appearance: Yes: Nourished, Appropriately Dressed. No: Mild Distress HEENT: positive: Normal Voice, Hearing Grossly Normal. negative: Tonsillar Exudate, Tonsillar Erythema Respiratory/Chest: positive: Chest Tender, Lungs Clear, Normal Breath Sounds. negative: Respiratory Distress, Labored Respiration, Rapid RR, Decreased Breath Sounds, Crackles, Rales, Rhonchi, Stridor Cardiovascular: positive: Regular Rhythm, S1, S2, Irregularly Irregular. negative: Diastolic Murmur, Systolic Murmur Gastrointestinal/Abdominal: positive: Tender (in suprapubic region), Flat, Soft. negative: Pulsatile Mass, Guarding, Rebound, Hernia, Mass Musculoskeletal: negative: CVA Tenderness, CVA Tenderness (R), CVA Tenderness (L ) Extremity: positive: Swelling (1+ in lower extremities b/l) Integumentary: positive: Dry, Warm. 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 L weaker than right), Finger to Nose. negative: Confused, Disoriented Heart Score/ECG Review - ECG Impressions Normal ECG: Yes ED Treatment Course - LABORATORY CBC & Chemistry Diagram: 11/15/16 16:47 11/15/16 16:47 - ADDITIONAL ORDERS Additional order review: 11/15/16 16:47 RBC 4.62 MCV 90.4 MCHC 32.5 RDW 17.3 H MPV 9.9 Neutrophils % 41.7 L Lymphocytes % 50.1 H Monocytes % 6.7 Eosinophils % 1.0 Basophils % 0.5 - Medications Given in the ED: ED Medications Discontinued Medications Generic Name Dose Route Start Last Admin Trade Name Faith PRN Reason Stop Dose Admin Morphine Sulfate 4 mg 11/15/16 16:36 11/15/16 16:50 Morphine Injection - IVPUSH 11/15/16 16:37 4 mg ONCE ONE Administration Ondansetron HCl 4 mg 11/15/16 16:36 11/15/16 16:50 Zofran Injection IVPUSH 11/15/16 16:37 4 mg ONCE ONE Administration Medical Decision Making - Medical Decision Making 11/15/16 17:46 The patient is a 56F with a significant cardiac PMH who presents w/ SOB. Labs and imaging have been ordered by Dr. Quintero. I will follow these and reassess the patient. 11/15/16 18:49 No white count, CMP is WNL compared to previous CMP. 11/15/16 18:53 Patient signed out to night team, Dr. Hernadez. *DC/Admit/Observation/Transfer Diagnosis at time of Disposition: Congestive heart failure (CHF) Qualifiers: Congestive heart failure type: unspecified congestive heart failure type Congestive heart failure chronicity: unspecified congestive heart failure chronicity Qualified Code(s): I50.9 - Heart failure, unspecified - Discharge Dispostion Condition at time of disposition: Unchanged/Unknown
--- NOTE | 2016-11-15 17:52 | PDOC ---
History of Present Illness - General History Source: Patient Exam Limitations: No Limitations - History of Present Illness Initial Comments: 11/15/16 17:52 The patient is a 56 year old female, with a significant past medical history of CAD(s/p AL X2), Ischemic cardiomyopathy(EF 21%) with ICD, CHF, and cocaine abuse , who presents to the emergency department complaining of chest pain and shortness of breath since earlier this afternoon. The patient describes her chest as if a truck is sitting on my chest. She reports calling EMS, but states EMS never arrived so she drive herself to the ED. The patient denies any associated diaphoresis, palpitations, or lower extremity edema. The patient reports she did not take any of her lasix or aspirin medications this morning. She reports it feels like she has fluid in her lungs. Per records, the patient presented on 10/23/16 for evaluation of pacemaker. During that visit, [employer] was contacted, and the nutrition representative noted that the pacemaker was in working condition and that the defibrillator was turned off 2.5 years prior upon patient request. After discharge, patient was supposed to follow up with Dr. Sherman. The patient denies any fever, chills, cough, headache, or dizziness. She denies any recent travel or sick contacts. Allergies: NKDA Past Surgical History: Pacemaker Social History: Cocaine Abuse, ETOH use. Current everyday smoker. Hospice Coordinator: Dr. Sherman <Jesse Romero - Last Filed: 11/15/16 18:33> <Dean Quintero - Last Filed: 11/15/16 18:40> - General Chief Complaint: Shortness of Breath Stated Complaint: RAPID RESPONSE Time Seen by Provider: 11/15/16 16:33 Past History <Jesse Romero - Last Filed: 11/15/16 18:33> - Past Medical History Cardiac Disorders: Yes (s/p AL) COPD: Yes CHF: Yes HTN: Yes - Surgical History Cardiac Surgery: Yes (aicd) - Immunization History Immunization Up to Date: Yes - Psycho/Social/Smoking Cessation Hx Anxiety: No Suicidal Ideation: No Smoking History: Current every day smoker Have you smoked in the past 12 months: Yes Number of Cigarettes Smoked Daily: 10 If you are a former smoker, when did you quit?: UNK Information on smoking cessation initiated: No 'Breaking Loose' booklet given: 10/10/16 Hx Alcohol Use: Yes Drug/Substance Use Hx: Yes Substance Use Type: Alcohol, Cocaine Hx Substance Use Treatment: Yes <Dean Quintero - Last Filed: 11/15/16 18:40> - Past Medical History Allergies/Adverse Reactions: Allergies Allergy/AdvReac Type Severity Reaction Status Date / Time No Known Allergies Allergy Verified 10/23/16 14:11 Home Medications: Ambulatory Orders Aspirin Coated [Ecotrin -] 81 mg PO DAILY #30 tablet.ec 05/21/16 Potassium Chloride [K-Dur -] 20 meq PO DAILY #30 tablet.er 05/21/16 Folic Acid - 1 mg PO DAILY tablet 10/12/16 Furosemide [Lasix -] 40 mg PO DAILY #15 tablet 10/12/16 Lisinopril [Prinivil] 2.5 mg PO DAILY #20 tablet 10/12/16 Thiamine HCl [Vitamin B1 -] 100 mg PO DAILY tablet 10/12/16 Review of Systems - Review of Systems Able to Perform ROS?: Yes Comments:: 11/15/16 17:52 GENERAL/CONSTITUTIONAL: No fever or chills. No weakness. HEAD, EYES, EARS, NOSE AND THROAT: No change in vision. No ear pain or discharge. No sore throat. CARDIOVASCULAR: Yes: +chest pain, +shortness of breath. . RESPIRATORY: Yes: +shortness of breath, +fluid in lungs. No cough, wheezing, or hemoptysis. GASTROINTESTINAL: No nausea, vomiting, diarrhea or constipation. GENITOURINARY: No dysuria, frequency, or change in urination. MUSCULOSKELETAL: No joint or muscle swelling or pain. No neck or back pain. SKIN: No rash NEUROLOGIC: No headache, vertigo, loss of consciousness, or change in strength/ sensation. ENDOCRINE: No increased thirst. No abnormal weight change. HEMATOLOGIC/LYMPHATIC: No anemia, easy bleeding, or history of blood clots. ALLERGIC/IMMUNOLOGIC: No hives or skin allergy. <Jesse Romero - Last Filed: 11/15/16 18:33> - Review of Systems Is the patient limited Tajik proficient: No <Dean Quintero - Last Filed: 11/15/16 18:40> *Physical Exam - Vital Signs Last Vital Signs Temp Pulse Resp BP Pulse Ox 98 F 133 H 25 H 114/79 100 11/15/16 16:19 11/15/16 16:19 11/15/16 16:19 11/15/16 16:19 11/15/16 16:19 - Physical Exam Comments: 11/15/16 17:52 GENERAL: Awake, alert, and fully oriented, in no acute distress HEAD: No signs of trauma EYES: PERRLA, EOMI, sclera anicteric, conjunctiva clear ENT: Auricles normal inspection, hearing grossly normal, nares patent, oropharynx clear without exudates. Moist mucosa NECK: +JVD. Normal ROM, supple, no lymphadenopathy, or masses LUNGS: Breath sounds equal, clear to auscultation bilaterally. No wheezes, and no crackles HEART: +PMI was laterally displaced. Normal S1 and S2, no murmurs, rubs or gallops ABDOMEN: Soft, nontender, normoactive bowel sounds, nondistended. No guarding, no rebound. No masses EXTREMITIES:Normal range of motion, no edema. No clubbing or cyanosis. No cords , erythema, or tenderness NEUROLOGICAL: Cranial nerves II through XII grossly intact. Normal speech, normal gait SKIN: Warm, Dry, normal turgor, no rashes or lesions noted. <Jesse Romero - Last Filed: 11/15/16 18:33> - Vital Signs Last Vital Signs Temp Pulse Resp BP Pulse Ox 98 F 133 H 25 H 114/79 100 11/15/16 16:19 11/15/16 16:19 11/15/16 16:19 11/15/16 16:19 11/15/16 16:19 <Dean Quintero - Last Filed: 11/15/16 18:40> Heart Score/ECG Review - ECG Intrepretation Comment:: 11/15/16 18:34 Exam: 83 bpm IMPRESSION: Sinus rhythm with premature atrial complexes. Left atrial enlargement. Left ventricular hypertrophy. T wave abnormality, consider lateral ischemia. Prolonged QT. <Jesse Romero - Last Filed: 11/15/16 18:33> ED Treatment Course - LABORATORY CBC & Chemistry Diagram: 11/15/16 16:47 11/15/16 16:47 - ADDITIONAL ORDERS Additional order review: Laboratory Results 11/15/16 16:47 INR 1.60 H 11/15/16 16:47 RBC 4.62 MCV 90.4 MCHC 32.5 RDW 17.3 H MPV 9.9 Neutrophils % 41.7 L Lymphocytes % 50.1 H Monocytes % 6.7 Eosinophils % 1.0 Basophils % 0.5 - Medications Given in the ED: ED Medications Discontinued Medications Generic Name Dose Route Start Last Admin Trade Name Freq PRN Reason Stop Dose Admin Morphine Sulfate 4 mg 11/15/16 16:36 11/15/16 16:50 Morphine Injection - IVPUSH 11/15/16 16:37 4 mg ONCE ONE Administration Ondansetron HCl 4 mg 11/15/16 16:36 11/15/16 16:50 Zofran Injection IVPUSH 11/15/16 16:37 4 mg ONCE ONE Administration <Jesse Romero - Last Filed: 11/15/16 18:33> - LABORATORY CBC & Chemistry Diagram: 11/15/16 16:47 11/15/16 16:47 - ADDITIONAL ORDERS Additional order review: Laboratory Results 11/15/16 16:47 INR 1.60 H 11/15/16 16:47 RBC 4.62 MCV 90.4 MCHC 32.5 RDW 17.3 H MPV 9.9 Neutrophils % 41.7 L Lymphocytes % 50.1 H Monocytes % 6.7 Eosinophils % 1.0 Basophils % 0.5 - RADIOLOGY Radiology Studies Ordered: Category Date Time Status CHEST X-RAY PORTABLE* [RAD] Stat Radiology 11/15/16 16:33 Completed - Medications Given in the ED: ED Medications Discontinued Medications Generic Name Dose Route Start Last Admin Trade Name Freq PRN Reason Stop Dose Admin Morphine Sulfate 4 mg 11/15/16 16:36 11/15/16 16:50 Morphine Injection - IVPUSH 11/15/16 16:37 4 mg ONCE ONE Administration Ondansetron HCl 4 mg 11/15/16 16:36 11/15/16 16:50 Zofran Injection IVPUSH 11/15/16 16:37 4 mg ONCE ONE Administration <Dean Quintero - Last Filed: 11/15/16 18:40> *DC/Admit/Observation/Transfer - Attestations Scribe Attestion: 11/15/16 17:53 Documentation prepared by Jesse Romero, acting as biomedical service engineer for Dean Quintero DO. <Jesse Romero - Last Filed: 11/15/16 18:33> - Discharge Dispostion Admit: Yes - Attestations Physician Attestion: 11/15/16 17:52 I, Dr. Dean Quintero, attest that this document has been prepared under my direction and personally reviewed by me in its entirety. I further attest, that it accurately reflects all work, treatment, procedures and medical decision -making performed by me. <Dean Quintero - Last Filed: 11/15/16 18:40> Diagnosis at time of Disposition: Congestive heart failure (CHF) Qualifiers: Congestive heart failure type: unspecified congestive heart failure type Congestive heart failure chronicity: unspecified congestive heart failure chronicity Qualified Code(s): I50.9 - Heart failure, unspecified - Discharge Dispostion Condition at time of disposition: Unchanged/Unknown
[2016-11-15 17:59] LABS: ALBUMIN 3.6 g/dl (3.4-5.0); ANION GAP 8 (8-16); BILIRUBIN,TOTAL 1.3 mg/dL (0.2-1.0); CALCIUM 8.4 mg/dL (8.5-10.1); CO2 25 mmol/L (21-32); CREATININE 0.8 mg/dL (0.55-1.02); GLUCOSE,RANDOM 152 mg/dL (74-106); SGOT/AST 45 U/L (15-37); SGPT/ALT 49 U/L (12-78)
[2016-11-15] MEDS ORDERED: METOLAZONE 5 MG TABLET PO ONE (18:00)
[2016-11-15 18:01] LABS: ALK PHOS 133 U/L (45-117); CPK 74 IU/L (26-192); TROPONIN I 0.02 ng/ml (0.00-0.05)
[2016-11-15] MEDS ORDERED: FUROSEMIDE 40 MG/4 ML INJECTABLE VIAL ONE (18:18)
[2016-11-15] MEDS ORDERED: ASPIRIN 81 MG CHEWABLE TABLETS PO ONE (19:24)
[2016-11-15] MEDS ORDERED: guaiFENesin 200 MG/10 ML 10 ML UNIT-DOSE CUPS PO ONE (19:52)
[2016-11-15] MEDS ORDERED: guaiFENesin 200 MG/10 ML 10 ML UNIT-DOSE CUPS ONE (19:58)
[2016-11-15] MEDS ORDERED: ONDANSETRON *ODT* 4 MG TABLET SL ONE (20:21)
[2016-11-15] MEDS ORDERED: ONDANSETRON *ODT* 4 MG TABLET ONE (20:28)
[2016-11-15] MEDS: PANTOPRAZOLE 40 MG TABLET (FP) PO SCH (20:33)
[2016-11-15] MEDS ORDERED: ONDANSETRON 4 MG/2 ML VIAL IVPB PRN (20:34)
--- NOTE | 2016-11-15 20:48 | PN ---
Teaching Attending Note Name of Resident: William Valenzuela ATTENDING PHYSICIAN STATEMENT I saw and evaluated the patient. I reviewed the resident's note and discussed the case with the resident. I agree with the resident's findings and plan as documented. SUBJECTIVE: 56 y/o female presenting c/o chest pressure with dyspnea. PMH significant for CAD, HTN, DLP, s/p PA, COPD and ETOH or Cocaine use. OBJECTIVE:Alert and oriented times 3 in moderate distress, coughing then vomiting food contents (chocolate cake), CVS RRR, Lungs: CTA, Abd: soft, nontender, nondistended, BS+, Ext 1+ edema, 2+ pulses. CBCD WBC 7.1 K/mm3 (4.0-10.0) 11/15/16 16:47 RBC 4.62 M/mm3 (3.60-5.2) 11/15/16 16:47 Hgb 13.6 GM/dL (10.7-15.3) D 11/15/16 16:47 Hct 41.7 % (32.4-45.2) 11/15/16 16:47 MCV 90.4 fl (80-96) 11/15/16 16:47 MCHC 32.5 g/dl (32.0-36.0) 11/15/16 16:47 RDW 17.3 % (11.6-15.6) H 11/15/16 16:47 Plt Count 139 K/MM3 (134-434) 11/15/16 16:47 MPV 9.9 fl (7.5-11.1) 11/15/16 16:47 CMP Sodium 143 mmol/L (136-145) 11/15/16 16:47 Potassium 3.5 mmol/L (3.5-5.1) 11/15/16 16:47 Chloride 110 mmol/L (98-107) H 11/15/16 16:47 Carbon Dioxide 25 mmol/L (21-32) D 11/15/16 16:47 Anion Gap 8 (8-16) 11/15/16 16:47 BUN 11 mg/dL (7-18) D 11/15/16 16:47 Creatinine 0.8 mg/dL (0.55-1.02) 11/15/16 16:47 Creat Clearance w eGFR > 60 (>60) 11/15/16 16:47 Calcium 8.4 mg/dL (8.5-10.1) L 11/15/16 16:47 Total Bilirubin 1.3 mg/dL (0.2-1.0) H 11/15/16 16:47 AST 45 U/L (15-37) H 11/15/16 16:47 ALT 49 U/L (12-78) 11/15/16 16:47 Alkaline Phosphatase 133 U/L (45-117) H 11/15/16 16:47 Total Protein 7.0 g/dl (6.4-8.2) 11/15/16 16:47 Albumin 3.6 g/dl (3.4-5.0) 11/15/16 16:47 ASSESSMENT AND PLAN: Chest pain most likely secondary to CHF exacerbation LVEF 21%, Lasix 40mg BID, lisinopril 2.5 mg daily, fluid restriction, lipid panel. Do not give robitussin as patient has adverse reaction of severe nausea and vomiting, patient vomited in ED. Patient later went into Afib CHADvasc score 2, aspirin daily, cardiology consult. ETOH- thiamine and folate [facility] protocol. DVT prophylaxis
[2016-11-15 20:52] LABS: URINE APPEARANCE CLEAR; URINE BILIRUBIN NEGATIVE (NEGATIVE); URINE BLOOD NEGATIVE (NEGATIVE); URINE COLOR STRAW; URINE GLUCOSE (UA) NEGATIVE (NEGATIVE); URINE KETONE NEGATIVE (NEGATIVE); URINE LEUK ESTERASE NEGATIVE (NEGATIVE); URINE NITRITE NEGATIVE (NEGATIVE); URINE PROTEIN NEGATIVE (NEGATIVE); URINE UROBILINOGEN NEGATIVE mg/dL (0.2-1.0)
--- NOTE | 2016-11-15 20:57 | HP ---
Admitting History and Physical - Admission History of Present Illness: 56yo F with significant history of systolic CHF (EF of 21%; s/p ICD after MIx2) , cocaine abuse, alcohol abuse, and HTN who is being seen in the ED for chest pressure and difficulty breathing. Pt states she was recently discharged on October 2016 for another acute exacerbation of CHF. She reports this morning she started feeling SOB and chest pressure and called an ambulance, however she states the ambulance did not arrive. Instead, she drove herself to the hospital where a rapid response was called in the lobby and she was promptly sent to the ED. Pt reports cough starting 1-2 days ago with minimal production which she does not know what colour the sputum is. She reports baseline lower extremity which is controlled via Lasix. Pt denies any abdominal pain, fever/chills, diarrhea/constipation. Pt has a long history of alcohol and cocaine abuse. Pt admits her last cocaine use was 11/10/16 and her last drink was 11/14/16 consisting of one beer. Pt denies any tremors, paroxysmal sweats, visual/tactile/auditory hallucinations. ER course notable for: 1) EKG - sinus tachycardia with no change from most recent ECG 2) Morphine 4mg given x1 3) CXR - ICD in place with slight cardiomegaly. Diffuse congestion in comparison of previous XR. No effusions noted 4) Lasix 40mg dose x1 given 5) Labwork revealing: Troponin x1 negative, BNP elevated at 3442 History Source: Patient - Past Medical History Cardiovascular: Yes: CAD, HTN, Hyperlipdemia, [place] Pulmonary: Yes: COPD Psych: Yes: Addictions (Alcohol and cocaine) - Past Surgical History Past Surgical History: Yes: AICD, Tonsillectomy, Tubal Ligation - Smoking History Smoking history: Current every day smoker Have you smoked in the past 12 months: Yes Aproximately how many cigarettes per day: 10 If you are a former smoker, when did you quit?: UNK - Alcohol/Substance Use Hx Alcohol Use: Yes History of Substance Use: reports: Cocaine - Social History ADL: Independent History of Recent Travel: No Home Medications - Allergies Allergies/Adverse Reactions: Allergies Allergy/AdvReac Type Severity Reaction Status Date / Time No Known Allergies Allergy Verified 10/23/16 14:11 - Home Medications Home Medications: Ambulatory Orders Aspirin Coated [Ecotrin -] 81 mg PO DAILY #30 tablet.ec 05/21/16 Potassium Chloride [K-Dur -] 20 meq PO DAILY #30 tablet.er 05/21/16 Folic Acid - 1 mg PO DAILY tablet 10/12/16 Furosemide [Lasix -] 40 mg PO DAILY #15 tablet 10/12/16 Lisinopril [Prinivil] 2.5 mg PO DAILY #20 tablet 10/12/16 Thiamine HCl [Vitamin B1 -] 100 mg PO DAILY tablet 10/12/16 Family Disease History - Family Disease History Family Disease History: CA: Father (colon cancer) Review of Systems - Review of Systems Cardiovascular: reports: Edema Respiratory: reports: Cough, Orthopnea, SOB Physical Examination Vital Signs: Vital Signs Temperature 98 F 11/15/16 16:19 Pulse Rate 133 H 11/15/16 16:19 Respiratory Rate 25 H 11/15/16 16:19 Blood Pressure 114/79 11/15/16 16:19 O2 Sat by Pulse Oximetry (%) 100 11/15/16 16:19 Constitutional: Yes: Calm, Mild Distress Eyes: Yes: Conjunctiva Clear, EOM Intact, PERRL. No: Sclera Icterus HENT: Yes: Atraumatic Neck: Yes: Trachea Midline Cardiovascular: Yes: Tachycardia, JVD. No: Murmur Respiratory: Yes: Regular, Cough (Excessive coughing with no production), Rales (Diffusely throughout). No: Accessory Muscle Use Gastrointestinal: Yes: Soft, Abdomen, Obese, Vomiting (Vomited in ED), Other ( Hepatojugular reflex +). No: Tenderness Edema: Yes Edema: LLE: Trace, RLE: Trace Peripheral Pulses WNL: Yes Integumentary: No: Jaundice, Rash Neurological: Yes: Alert, Oriented. No: Tremors Psychiatric: Yes: Alert, Oriented Assessment/Plan 56yo F with history of sCHF (ef 21%) s/p AICD post [place] x2. History of cocaine abuse, history of alcohol abuse. 1) Acute on chronic systolic congestive heart failure --NYHA Class IV; EF of 21%; s/p AICD --ER CXR shows diffuse increased congestion when compared to previous --Cough most likely due to fluid overload with diffuse rales on exam --Robitussin given for cough suppression --One dose Lasix 40mg given in ED --Initiate Lasix 40mg BID --Continue Lisinopril 2.5mg PO daily --Consulted Dr. Sherman of cardiology --Strict I/Os; daily weights --Fluid restriction --F/U cholesterol panel 2) Polysubstance abuse (alcohol, cocaine, tobacco) --Last drink 11/14/16 with one beer at night; last cocaine use 11/10/16 --On exam no evidence of acute withdrawal --CIWA 0 as of now, reassess at later date --Continue daily folic acid and thiamine --Low threshold on establishing librium protocol if withdrawal symptoms are seen on continuing exam --Consulted Dr. Cornelius --Nicotine patch for smoking control along with cessation counselling FEN: Fluids: Fluid restriction Electrolyte abnormalities: None Nutrition: Cardiac diet Dispo: Admit to tele Visit type - Emergency Visit Emergency Visit: Yes ED Registration Date: 11/15/16 Care time: The patient presented to the Emergency Department on the above date and was hospitalized for further evaluation of their emergent condition. - New Patient This patient is new to me today: Yes Date on this admission: 11/16/16 - Critical Care Critical Care patient: No
[2016-11-15 21:14] LABS: URINE MARIJUANA THC NEGATIVE ng/ml (CUTOFF=50)
--- NOTE | 2016-11-16 04:06 | HOSP ---
Subjective - Review of Symptoms Subjective: Paged by nursing staff about pt complaining of chest pain and having an irregular rhythm on monitor at a rate of 114. Plan was to obtain a 12-lead EKG and while assessing the pt, she refused to talk about her problems and refused performing an EKG. Benefits and risk of EKG was explained to her and pt continued to refuse EKG. Pt expresses multiple complaints about roommate using profane language. Nurse staff is aware and managing the rooming problem along with security. --UPDATE 11/16/16-- Pt had moved rooms to [facility] and pt has now agreed to EKG and treatment again. Cardiovascular: Yes: Chest Pain Physical Examination Vital Signs: Vital Signs Temperature 97.7 F 11/16/16 01:00 Pulse Rate 93 H 11/16/16 01:00 Respiratory Rate 20 11/16/16 01:00 Blood Pressure 116/70 11/16/16 01:00 O2 Sat by Pulse Oximetry (%) 97 11/15/16 22:30 Findings/Remarks: Unable to obtain Hospitalist Encounter Assessment: --Pt is refusing EKG, talking to physician, and refusing exam --Benefits and risks explained to pt --Pt continues to refuse --Nursing staff aware of situation ---UPDATE 11/16/16--- Pt has moved rooms and is agreeable to treatment again. EKG will be obtained [address] --[employer] already on board --ASA 325mg ordered.
[2016-11-16] MEDS: FUROSEMIDE 40 MG TABLET (FP) PO SCH ×2 (06:13→14:11)
[2016-11-16 07:33] LABS: ALBUMIN 3.4 g/dl (3.4-5.0); ANION GAP 8 (8-16); CALCIUM 8.5 mg/dL (8.5-10.1); CO2 26 mmol/L (21-32); CREATININE 0.8 mg/dL (0.55-1.02); GLUCOSE,RANDOM 142 mg/dL (74-106); MAGNESIUM 1.7 mg/dL (1.8-2.4); SGOT/AST 43 U/L (15-37); SGPT/ALT 45 U/L (12-78)
[2016-11-16 07:39] LABS: ALK PHOS 97 U/L (45-117); BILIRUBIN,TOTAL 1.7 mg/dL (0.2-1.0); CHOLESTEROL 83 mg/dL (50-200); LDL CHOLESTEROL (ONLY SJRH) 47 mg/dL (5-100); TOT PROT 6.8 g/dl (6.4-8.2)
--- NOTE | 2016-11-16 09:21 | PN ---
Progress Note, Physician Chief Complaint: 56F with PMH ICD, NICM, chronic systolic CHF, polysubstance abuse, admitted again with worsening PND and shortness of breath. Patient admits to ongoing cocaine use. She has been admitted 3 times in the last 2 months for acute on chronic decompensated CHF. Last admission, echo showed severe LV dysfx with severe MR: plan was for medical management as she had not demonstrated reliable outpatient f/u and was still using drugs. Her ICD was placed in [place]. She describes previous cath as non- obstructive. She had asked for her ICD to be turned off in [place] because it was "shocking her too much." Cardiac enzymes are negative and BNP is markedly elevated. - Current Medication List Current Medications: Active Medications Aspirin (Ecotrin -) 325 mg PO DAILY [facility] Folic Acid (Folic Acid -) 1 mg PO DAILY [facility] Furosemide (Lasix -) 40 mg PO BID@0600,1400 [facility] Last Admin: 11/16/16 06:13 Dose: Not Given Lisinopril (Prinivil) 2.5 mg PO DAILY [facility] Nicotine (Nicoderm Patch -) 14 mg TD DAILY [facility] Ondansetron HCl (Zofran Injection) 4 mg IVPB Q6H PRN PRN Reason: NAUSEA Pantoprazole Sodium (Protonix -) 40 mg PO DAILY [facility] Last Admin: 11/15/16 20:33 Dose: Not Given Thiamine HCl (Vitamin B1 -) 100 mg PO DAILY [facility] - Objective Vital Signs: Vital Signs Temperature 97.9 F 11/16/16 06:00 Pulse Rate 86 11/16/16 06:00 Respiratory Rate 20 11/16/16 06:00 Blood Pressure 96/61 11/16/16 06:00 O2 Sat by Pulse Oximetry (%) 97 11/15/16 22:30 Constitutional: Yes: No Distress Eyes: Yes: Conjunctiva Clear Cardiovascular: Yes: Regular Rate and Rhythm Respiratory: Yes: CTA Bilaterally (no rales or wheezing this morning.) Gastrointestinal: Yes: Soft Edema: No Neurological: Yes: Alert, Oriented Labs: CBC, BMP 11/16/16 06:30 INR, PTT INR 1.60 (0.82-1.09) H 11/15/16 16:47 Laboratory Tests 10/09/16 10/12/16 10/12/16 17:23 05:35 05:35 WBC 7.0 Hgb 15.8 H D Hct Plt Count 144 Sodium 140 Potassium 3.8 BUN 18 D Creatinine 0.8 Troponin I < 0.02 B-Natriuretic Peptide Total LDL Cholesterol 11/15/16 11/15/16 11/16/16 16:47 16:47 06:30 WBC 7.1 Hgb Hct 41.7 Plt Count 139 Sodium 142 Potassium 3.3 L BUN Creatinine 0.8 Troponin I 0.02 B-Natriuretic Peptide 3442.87 H Total LDL Cholesterol 47 11/16/16 06:30 WBC Hgb Hct Plt Count Sodium Potassium BUN Creatinine Troponin I 0.02 B-Natriuretic Peptide Total LDL Cholesterol - ....Imaging Chest X-ray: Image Reviewed EKG: Image Reviewed (TELE: NSR, periods of sinus tach. APCs. PVCs, short run NSVT) Assessment/Plan IMP: Acute on chronic systolic CHF, presumed due to NICM s/p ICD Polysubstance abuse, including cocaine. Severe MR REC: 1. Acute on chronic systolic CHF: -Clinically improved w/ one dose IV Lasix -Agree w/ switch to 40mg PO BID -Replete K+ -Lisinopril as BP allows. -Inclined to repeat coronary angiogram, if she allows: 3rd admission for CHF, unable to obtain prior records. Unclear if her history is reliable. 2. Severe MR: -Likely functional due to dilated LV, need to rule out ischemic component -Will suggest repeat angiogram 3. Polysubstance abuse: -Needs counselling and detox.
[2016-11-16] MEDS: LISINOPRIL 5 MG TABLET (FP) PO SCH (09:43)
[2016-11-16] MEDS: PANTOPRAZOLE 40 MG TABLET (FP) PO SCH (09:43)
[2016-11-16] MEDS: ASPIRIN 325 MG ENTERIC COATED TABLET (FP) PO SCH (09:44)
[2016-11-16] MEDS: FOLIC ACID 1 MG TABLET (FP) PO SCH (09:44)
[2016-11-16] MEDS: THIAMINE HCL 100 MG TABLET (FP) PO SCH (09:44)
[2016-11-16] MEDS: NICOTINE 14 MG/24 HOURS TOPICAL PATCH TD SCH (09:46)
[2016-11-16] MEDS ORDERED: ASPIRIN COATED 81 MG TABLET.EC PO SCH (10:00)
[2016-11-16] MEDS ORDERED: ALBUTEROL SO4 2.5/IPRATROPIUM 0.5 INH SOL 3 ML VIAL.NEB. NEB PRN (10:51)
--- NOTE | 2016-11-16 13:45 | PN ---
Teaching Attending Note Name of Resident: Bethany Payton ATTENDING PHYSICIAN STATEMENT I saw and evaluated the patient. I reviewed the resident's note and discussed the case with the resident. I agree with the resident's findings and plan as documented. SUBJECTIVE:c/o SOB but improved since yesterday. +orthopnea (however pt laid flat without difficulty for me) states she is compliant with her home medications when not doing drugs. she is interested in inpatient rehab program as she desires to be off illicit drugs. denies CP, fever, chills, cough, N/V/C/D OBJECTIVE: Last Vital Signs Temp Pulse Resp BP Pulse Ox 97.6 F 88 20 102/68 97 11/16/16 10:00 11/16/16 10:00 11/16/16 10:00 11/16/16 10:00 11/16/16 10:00 Intake & Output 11/13/16 11/14/16 11/15/16 11/16/16 23:59 23:59 23:59 23:59 Intake Total 120 Balance 120 Weight 175 lb 184 lb 6.4 oz General NAD CV S1 S2 RRR no murmur/rub/gallop no JVD Lungs CTA B/L no wheezing/rales/rhonchi ABdomen soft NT/ND Extremities Trace pitting edema ASSESSMENT AND PLAN: 56yo F wtih PMH systolic CHF with ICD placement (but ICD mechanism turned off due to frequent shocks?), HTN and continous polysubstance abuse presented with SOB and CP 1. Acute on chronic systolic CHF- clinically appears improved. received lasix IV in the ER and now placed on po. evaluated by cardiology who believes symptoms likely to be contributed due to MVR vs medication non-compliance. would benefit from angiogram. pt is now agreeable. will d/w with cardio further plans at this time. ICD checked within the past month per pt 2. Hypokalemia- Kcl 3. CP- cardiac enzymes neg x3. last night assoc with run of sinus tach and NSVT. can not be on beta hallie due to cocaine use. 4. Hypomagnesemia- Mg 800mg 5. continuous polysubstance abuse- last use of cocaine was last week (smokes). Utox only positive for opiates (received morphine in the ER). desires inpatient rehab. Detox consulted. no signs of withdrawal 6. DVT ppx- EAM
[2016-11-16] MEDS ORDERED: POTASSIUM CHLORIDE TABS 20 MEQ TABLET.ER (FP) PO ONE (14:15)
[2016-11-16] MEDS ORDERED: MAGNESIUM OXIDE 400 MG TABLET (FP) PO ONE (14:15)
--- NOTE | 2016-11-16 15:33 | EKG ---
Test Reason : Blood Pressure : / mmHG Vent. Rate : 093 BPM Atrial Rate : 083 BPM P-R Int : 130 ms QRS Dur : 094 ms QT Int : 432 ms P-R-T Axes : -15 -22 -34 degrees QTc Int : 537 ms SINUS RHYTHM WITH PREMATURE SUPRAVENTRICULAR COMPLEXES AND WITH FREQUENT PREMATURE VENTRICULAR COMPLEXES VOLTAGE CRITERIA FOR LEFT VENTRICULAR HYPERTROPHY NONSPECIFIC T WAVE ABNORMALITY PROLONGED QT ABNORMAL ECG WHEN COMPARED WITH ECG OF 15-NOV-2016 16:14, PREMATURE VENTRICULAR COMPLEXES ARE NOW PRESENT NONSPECIFIC T WAVE ABNORMALITY NOW EVIDENT IN INFERIOR LEADS T WAVE INVERSION LESS EVIDENT IN LATERAL LEADS QT HAS LENGTHENED Confirmed by KENNA MARTINS MD ([id number]) on 11/16/2016 3:33:26 PM Referred By: Confirmed By:KENNA MARTINS MD
--- NOTE | 2016-11-16 15:36 | CONSULT ---
Consult Detox [facility] Reason for Current Admission/Consult: Cocaine dependence Referred by:: William Valenzuela Res - History History of Present Illness: 56 y/o woman known to from previous admission in October 2016. She was admitted because of chest pain & SOB. - History Source History Provided By: Patient, Medical Record - Alcohol/Substance Use Hx Alcohol Use: Yes - Current Drug/Alcohol Use Cocaine Route: Smoking Frequency: Daily Amount used: $50-60 Age of first use: 9 Date of Last Use: 11/13/16 Alcohol Route: Oral Frequency: Daily Amount used: Beer 3-4 12oz cans Age of first use: 9 Date of Last Use: 11/14/16 - Past Medical History Cardio/Vascular: Yes: CAD, HTN, Hyperlipdemia, [place] Pulmonary: Yes: COPD Psych: Yes: Addictions (Alcohol and cocaine) - Past Surgical History Past Surgical History: Yes: AICD, Tonsillectomy, Tubal Ligation - Significant Medical Findings: Laboratory Last Values WBC 7.4 K/mm3 (4.0-10.0) 11/17/16 07:45 RBC 4.72 M/mm3 (3.60-5.2) 11/17/16 07:45 Hgb 13.7 GM/dL (10.7-15.3) 11/17/16 07:45 Hct 42.1 % (32.4-45.2) 11/17/16 07:45 MCV 89.2 fl (80-96) 11/17/16 07:45 MCH 29.0 pg (25.7-33.7) 11/17/16 07:45 MCHC 32.5 g/dl (32.0-36.0) 11/17/16 07:45 RDW 17.0 % (11.6-15.6) H 11/17/16 07:45 Plt Count 118 K/MM3 (134-434) L 11/17/16 07:45 MPV 9.7 fl (7.5-11.1) 11/17/16 07:45 Neutrophils % 41.7 % (42.8-82.8) L 11/15/16 16:47 Lymphocytes % 50.1 % (8-40) H 11/15/16 16:47 Monocytes % 6.7 % (3.8-10.2) 11/15/16 16:47 Eosinophils % 1.0 % (0-4.5) 11/15/16 16:47 Basophils % 0.5 % (0-2.0) 11/15/16 16:47 INR 1.60 (0.82-1.09) H 11/15/16 16:47 Sodium 139 mmol/L (136-145) 11/17/16 07:45 Potassium 3.5 mmol/L (3.5-5.1) 11/17/16 07:45 Chloride 101 mmol/L (98-107) 11/17/16 07:45 Carbon Dioxide 31 mmol/L (21-32) 11/17/16 07:45 Anion Gap 7 (8-16) L 11/17/16 07:45 BUN 14 mg/dL (7-18) D 11/17/16 07:45 Creatinine 0.9 mg/dL (0.55-1.02) 11/17/16 07:45 Creat Clearance w eGFR > 60 (>60) 11/16/16 06:30 Random Glucose 98 mg/dL (74-106) D 11/17/16 07:45 Calcium 9.1 mg/dL (8.5-10.1) 11/17/16 07:45 Magnesium 1.7 mg/dL (1.8-2.4) L 11/16/16 06:30 Total Bilirubin 1.7 mg/dL (0.2-1.0) H D 11/16/16 06:30 AST 43 U/L (15-37) H 11/16/16 06:30 ALT 45 U/L (12-78) 11/16/16 06:30 Alkaline Phosphatase 97 U/L (45-117) D 11/16/16 06:30 Creatine Kinase 74 IU/L (26-192) 11/15/16 16:47 Troponin I 0.02 ng/ml (0.00-0.05) 11/16/16 12:15 B-Natriuretic Peptide 3442.87 pg/ml (5-125) H 11/15/16 16:47 Total Protein 6.8 g/dl (6.4-8.2) 11/16/16 06:30 Albumin 3.4 g/dl (3.4-5.0) 11/16/16 06:30 Triglycerides 52 mg/dL (35-160) 11/16/16 06:30 Cholesterol 83 mg/dL (50-200) 11/16/16 06:30 Total LDL Cholesterol 47 mg/dL (5-100) 11/16/16 06:30 HDL Cholesterol 30 mg/dL (40-60) L 11/16/16 06:30 Urine Color Straw 11/15/16 19:54 Urine Appearance Clear 11/15/16 19:54 Urine pH 5.0 (5.0-8.0) 11/15/16 19:54 Ur Specific [place] 1.010 (1.005-1.025) 11/15/16 19:54 Urine Protein Negative (NEGATIVE) 11/15/16 19:54 Urine Glucose (UA) Negative (NEGATIVE) 11/15/16 19:54 Urine Ketones Negative (NEGATIVE) 11/15/16 19:54 Urine Blood Negative (NEGATIVE) 11/15/16 19:54 Urine Nitrite Negative (NEGATIVE) 11/15/16 19:54 Urine Bilirubin Negative (NEGATIVE) 11/15/16 19:54 Urine Urobilinogen Negative mg/dL (0.2-1.0) 11/15/16 19:54 Ur Leukocyte Esterase Negative (NEGATIVE) 11/15/16 19:54 Opiates Screen Positive ng/ml (CTNBGH=777) 11/15/16 19:54 Methadone Screen Negative ng/ml (HRADNQ=345) 11/15/16 19:54 Barbiturate Screen Negative ng/ml (RRIKXU=085) 11/15/16 19:54 Phencyclidine Screen Negative ng/ml (CUTOFF=25) 11/15/16 19:54 Ur Amphetamines Screen Negative ng/ml (OCYFCO=305) 11/15/16 19:54 MDMA (Ecstasy) Screen Negative ng/ml (UWTHBR=388) 11/15/16 19:54 Benzodiazepines Screen Negative ng/ml (FHQMYQ=451) 11/15/16 19:54 Cocaine Screen Negative ng/ml (CCEJHS=825) 11/15/16 19:54 U Marijuana (THC) Screen Negative ng/ml (CUTOFF=50) 11/15/16 19:54 Alcohol, Quantitative < 5.0 mg/dl (0-5) 11/15/16 16:47 labs noted Assessment Plan - Diagnosis (1) Congestive heart failure (CHF) Status: Chronic Qualifiers: Congestive heart failure type: unspecified congestive heart failure type Congestive heart failure chronicity: unspecified congestive heart failure chronicity Qualified Code(s): I50.9 - Heart failure, unspecified (2) Cocaine dependence, uncomplicated Status: Acute - Plan Plan: Pt. understands that cocaine use will cause chest pain and make CHF worse. She is referred back to IOP. - Medication Detox Regimen/Protocol: Not Applicable
--- NOTE | 2016-11-16 15:37 | EKG ---
Test Reason : Blood Pressure : / mmHG Vent. Rate : 083 BPM Atrial Rate : 083 BPM P-R Int : 172 ms QRS Dur : 094 ms QT Int : 392 ms P-R-T Axes : 045 -23 108 degrees QTc Int : 460 ms SINUS RHYTHM WITH PREMATURE ATRIAL COMPLEXES LEFT ATRIAL ENLARGEMENT LEFT VENTRICULAR HYPERTROPHY T WAVE ABNORMALITY, CONSIDER LATERAL ISCHEMIA PROLONGED QT ABNORMAL ECG WHEN COMPARED WITH ECG OF 23-OCT-2016 14:22, PREMATURE ATRIAL COMPLEXES ARE NOW PRESENT Confirmed by KENNA MARTINS MD ([id number]) on 11/16/2016 3:36:44 PM Referred By: Confirmed By:KENNA MARTINS MD
--- NOTE | 2016-11-16 16:48 | PN ---
Physical Exam: SUBJECTIVE: Patient seen and examined at bedside. Pt states that she is feeling very SOB, looks very uncomfortable, labored breathing. States that she has been dependent on cocaine since age 9 and has had trouble quitting. Outpatient programs never work for pt. She is interested in an in-patient rehab program. OBJECTIVE: Vital Signs Period Temp Pulse Resp BP Sys/Bravo Pulse Ox Last 24 Hr 97.6 F-98.1 F 55-94 18-20 96-120/61-85 97-98 GENERAL: The patient is awake, alert, and fully oriented, in distress HEAD: Normal with no signs of trauma. EYES: PERRL, extraocular movements intact, sclera anicteric, conjunctiva clear. No ptosis. NECK: Trachea midline, full range of motion, supple, no JVD noted LUNGS: SOB, labored breathing, rales heard bilaterally HEART: Regular rate and rhythm, S1, S2 without murmur, rub or gallop. ABDOMEN: Soft, nontender, nondistended, normoactive bowel sounds, no guarding, no rebound, no hepatosplenomegaly, no masses. EXTREMITIES: 2+ posterior tibial pulses, warm, well-perfused, trace edema LLE NEUROLOGICAL: Cranial nerves II through XII grossly intact. Laboratory Results - last 24 hr 11/15/16 11/15/16 11/16/16 19:54 19:54 06:30 Sodium 142 Potassium 3.3 L Chloride 108 H Carbon Dioxide 26 Anion Gap 8 BUN 10 Creatinine 0.8 Creat Clearance w eGFR > 60 Random Glucose 142 H Calcium 8.5 Magnesium 1.7 L Total Bilirubin 1.7 H D AST 43 H ALT 45 Alkaline Phosphatase 97 D Troponin I Total Protein 6.8 Albumin 3.4 Triglycerides 52 Cholesterol 83 Total LDL Cholesterol 47 HDL Cholesterol 30 L Urine Color Straw Urine Appearance Clear Urine pH 5.0 Ur Specific [place] 1.010 Urine Protein Negative Urine Glucose (UA) Negative Urine Ketones Negative Urine Blood Negative Urine Nitrite Negative Urine Bilirubin Negative Urine Urobilinogen Negative Ur Leukocyte Esterase Negative Opiates Screen Positive Methadone Screen Negative Barbiturate Screen Negative Phencyclidine Screen Negative Ur Amphetamines Screen Negative MDMA (Ecstasy) Screen Negative Benzodiazepines Screen Negative Cocaine Screen Negative U Marijuana (THC) Screen Negative 11/16/16 11/16/16 06:30 12:15 Sodium Potassium Chloride Carbon Dioxide Anion Gap BUN Creatinine Creat Clearance w eGFR Random Glucose Calcium Magnesium Total Bilirubin AST ALT Alkaline Phosphatase Troponin I 0.02 0.02 Total Protein Albumin Triglycerides Cholesterol Total LDL Cholesterol HDL Cholesterol Urine Color Urine Appearance Urine pH Ur Specific [place] Urine Protein Urine Glucose (UA) Urine Ketones Urine Blood Urine Nitrite Urine Bilirubin Urine Urobilinogen Ur Leukocyte Esterase Opiates Screen Methadone Screen Barbiturate Screen Phencyclidine Screen Ur Amphetamines Screen MDMA (Ecstasy) Screen Benzodiazepines Screen Cocaine Screen U Marijuana (THC) Screen Active Medications Generic Name Dose Route Start Last Admin Trade Name Freq PRN Reason Stop Dose Admin Albuterol/Ipratropium 1 amp 11/16/16 10:51 Duoneb - NEB Q4H PRN SHORTNESS OF BREATH Aspirin 325 mg 11/16/16 10:00 11/16/16 09:44 Ecotrin - PO 325 mg DAILY LIUDMILA Administration Atorvastatin Calcium 40 mg 11/16/16 22:00 Lipitor - PO HS LIUDMILA Folic Acid 1 mg 11/16/16 10:00 11/16/16 09:44 Folic Acid - PO 1 mg DAILY LIUDMILA Administration Furosemide 40 mg 11/16/16 06:00 11/16/16 14:11 Lasix - PO 40 mg BID@0600,1400 LIUDMILA Administration Lisinopril 2.5 mg 11/16/16 10:00 11/16/16 09:43 Prinivil PO Not Given DAILY [facility] Nicotine 14 mg 11/16/16 10:00 11/16/16 09:46 Nicoderm Patch - TD Not Given DAILY LIUDMILA Ondansetron HCl 4 mg 11/15/16 20:34 Zofran Injection IVPB Q6H PRN NAUSEA Pantoprazole Sodium 40 mg 11/15/16 20:30 11/16/16 09:43 Protonix - PO 40 mg DAILY LIUDMILA Administration Thiamine HCl 100 mg 11/16/16 10:00 11/16/16 09:44 Vitamin B1 - PO 100 mg DAILY LIUDMILA Administration ASSESSMENT/PLAN: 56 y/o F with history of systolic CHF (EF 21%) s/p AICD post MIx2. History of cocaine abuse, alcohol abuse. Admitted for acute on chronic systolic CHF. 1) Acute on chronic systolic CHF -Cough from fluid overload -Initial CXR: increased congestion compared to prior study -CXR 11/16: no significant change -Continue lasix 40mg BID -Strict I's/O's, daily weight 2) Polysubstance abuse (alcohol, cocaine, tobacco) -Pt counseled on abstinence to drugs/alcohol and medication compliance -Patient willing to go to in-patient detox program -Dr. Alan dempsey consulted for detox -Nicotine patch 14 mg TD daily -Continue folic acid 1mg PO daily, thiamine 100mg PO daily 3) Hypokalemia -repleted with 20mEq KCl -will follow levels 4) Hypomagnesemia -Repleted w/ 800mg Magnesium oxide once -Will monitor 4) HTN-controlled -Continue lisinopril 2.5 mg PO daily 5) CAD -Continue aspirin 325 mg PO daily -Pt for cardiac cath tomorrow 6) Hx of COPD -no complaints or active symptoms during this admission DVT prophylaxis -Early ambulation, SCD's F/E/N -Fluid restriction -Monitor electrolytes -NPO after midnight Disposition -Transfer for cardiac cath tomorrow Visit type - Emergency Visit Emergency Visit: No - New Patient This patient is new to me today: Yes Date on this admission: 11/16/16 - Critical Care Critical Care patient: No
[2016-11-16] MEDS ORDERED: ACETAMINOPHEN 500 MG TABLET (FP) PO ONE (20:14)
[2016-11-16] MEDS ORDERED: chlordiazePOXIDE HCL 25 MG CAPSULE PO ONE (20:29)
[2016-11-16] MEDS ORDERED: chlordiazePOXIDE HCL 25 MG CAPSULE PO PRN (20:30)
[2016-11-16] MEDS: ATORVASTATIN CA 40 MG TABLET (FP) PO SCH ×2 (20:40→22:43)
--- NOTE | 2016-11-16 20:42 | HOSP ---
Subjective - Review of Symptoms Subjective: Paged 20:30 on 11/16/16 due to possible withdrawals due to polysubstance abuse. Pt is restless at rest in all four extremities, slightly agitated, admits to paroxysmal sweats, and headache refractory to tylenol. Pt admits to last drink being last night before she came to the ER for admission. Pt denies visual, tactile, auditory hallucinations. Pt does not have nausea or vomiting, but has received Zofran today so unable to fully assess at this point. Pt was previously not on librium protocol for withdrawal because she exhibited no signs of withdrawal and had only admitted previously to [facility] two days before admission. Physical Examination Vital Signs: Vital Signs Temperature 98.1 F 11/16/16 14:00 Pulse Rate 55 L 11/16/16 14:30 Respiratory Rate 20 11/16/16 14:00 Blood Pressure 120/67 11/16/16 14:00 O2 Sat by Pulse Oximetry (%) 98 11/16/16 14:30 Constitutional: Yes: Anxious, Diaphoresis, Mild Distress Eyes: Yes: Conjunctiva Clear, EOM Intact, PERRL Neck: Yes: Trachea Midline Cardiovascular: Yes: Tachycardia. No: Murmur Respiratory: Yes: Regular, CTA Bilaterally Neurological: Yes: Alert, Oriented, Tremors (Mild tremor with arms outstretched) , Other (Severe Restlessness, cannot sit still in bed) Psychiatric: Yes: Alert, Oriented Labs: CBC, BMP 11/16/16 06:30 Hospitalist Encounter Assessment: Possible withdrawal with polysubstance abuse history. Tremor, restlessness, agitation, headache, anxiety, paroxysmal sweats positive. Negative for hallucinations, seizures. CIWA 15 --Will initiate librium protocol. First dose of Librium 50mg PO at 20:30 on 11/16 --Will adjust protocol times as directed --Ordering Ativan 1mg PRN if needed for withdrawals inbetween Librium scheduled doses
[2016-11-16] MEDS ORDERED: PT OWN MED DRAWER 7, Y5N ONE (23:27)
[2016-11-16] MEDS: chlordiazePOXIDE HCL 25 MG CAPSULE PO SCH (23:30)
[2016-11-17] MEDS ORDERED: BISACODYL 10 MG SUPP.RECT PR ONE (00:36)
[2016-11-17] MEDS ORDERED: PHENYLEPH/MINERAL OIL/PETROLAT 28 GM OINTMENT RC PRN (02:00)
[2016-11-17] MEDS: chlordiazePOXIDE HCL 25 MG CAPSULE PO SCH ×2 (06:02→12:12)
[2016-11-17] MEDS: FUROSEMIDE 40 MG TABLET (FP) PO SCH (06:03)
[2016-11-17 08:06] LABS: MCHC 32.5 g/dl (32.0-36.0); MEAN CELL VOLUME 89.2 fl (80-96); MEAN PLT VOLUME 9.7 fl (7.5-11.1); PLATELET COUNT 118 K/MM3 (134-434); WHITE BLOOD COUNT 7.4 K/mm3 (4.0-10.0)
--- NOTE | 2016-11-17 08:32 | PN ---
Progress Note, Physician Chief Complaint: TELE: NSR, APCs and atach runs (self limited) NSVT 3-5 beats - Current Medication List Current Medications: Active Medications Albuterol/Ipratropium (Duoneb -) 1 amp NEB Q4H PRN PRN Reason: SHORTNESS OF BREATH Aspirin (Ecotrin -) 325 mg PO DAILY [facility] Last Admin: 11/16/16 09:44 Dose: 325 mg Atorvastatin Calcium (Lipitor -) 40 mg PO HS [facility] Last Admin: 11/16/16 22:43 Dose: Not Given Chlordiazepoxide HCl (Librium -) 25 mg PO Q4H PRN PRN Reason: WITHDRAWAL(CONT SUBST) Stop: 11/19/16 20:29 Chlordiazepoxide HCl (Librium -) 50 mg PO Q6HPO [facility] Stop: 11/17/16 12:01 Last Admin: 11/17/16 06:02 Dose: 50 mg Chlordiazepoxide HCl (Librium -) 25 mg PO Q6HPO [facility] Stop: 11/18/16 12:01 Chlordiazepoxide HCl (Librium -) 15 mg PO Q6HPO [facility] Stop: 11/19/16 12:01 Folic Acid (Folic Acid -) 1 mg PO DAILY [facility] Last Admin: 11/16/16 09:44 Dose: 1 mg Furosemide (Lasix -) 40 mg PO BID@0600,1400 [facility] Last Admin: 11/17/16 06:03 Dose: Not Given Lisinopril (Prinivil) 2.5 mg PO DAILY [facility] Last Admin: 11/16/16 09:43 Dose: Not Given Lorazepam (Ativan Injection -) 1 mg IM Q6H PRN PRN Reason: WITHDRAWAL(CONT SUBST) Nicotine (Nicoderm Patch -) 14 mg TD DAILY [facility] Last Admin: 11/16/16 09:46 Dose: Not Given Ondansetron HCl (Zofran Injection) 4 mg IVPB Q6H PRN PRN Reason: NAUSEA Pantoprazole Sodium (Protonix -) 40 mg PO DAILY [facility] Last Admin: 11/16/16 09:43 Dose: 40 mg Thiamine HCl (Vitamin B1 -) 100 mg PO DAILY [facility] Last Admin: 11/16/16 09:44 Dose: 100 mg - Objective Vital Signs: Vital Signs Temperature 97.5 F L 11/17/16 06:00 Pulse Rate 113 H 11/17/16 06:00 Respiratory Rate 16 11/17/16 08:21 Blood Pressure 139/75 11/17/16 06:00 O2 Sat by Pulse Oximetry (%) 97 11/17/16 08:21 Constitutional: Yes: No Distress Eyes: Yes: Conjunctiva Clear Cardiovascular: Yes: Regular Rate and Rhythm Respiratory: Yes: CTA Bilaterally Gastrointestinal: Yes: Soft Edema: No Neurological: Yes: Alert, Oriented Labs: CBC, BMP 11/17/16 07:45 INR, PTT INR 1.60 (0.82-1.09) H 11/15/16 16:47 Laboratory Tests 11/15/16 11/16/16 11/16/16 16:47 06:30 12:15 WBC Hct Plt Count Potassium Creatinine Troponin I 0.02 0.02 0.02 11/17/16 11/17/16 07:45 07:45 WBC 7.4 Hct 42.1 Plt Count 118 L Potassium Pending Creatinine Pending Troponin I - ....Imaging EKG: Image Reviewed Assessment/Plan IMP: Acute on chronic systolic CHF, presumed due to NICM s/p ICD Polysubstance abuse, including cocaine. Severe MR REC: 1. Acute on chronic systolic CHF: -Clinically improved w/ one dose IV Lasix -cont 40mg PO BID -Replete K+ -Lisinopril as BP allows. -For cath for definitive assessment of coronary anatomy, plan for tx to [facility] today. 2. Severe MR: -Likely functional due to dilated LV, need to rule out ischemic component -Will suggest repeat angiogram 3. Polysubstance abuse: -Needs counselling and detox.
[2016-11-17 08:41] LABS: ANION GAP 7 (8-16); CALCIUM 9.1 mg/dL (8.5-10.1); CO2 31 mmol/L (21-32); CREATININE 0.9 mg/dL (0.55-1.02); GLUCOSE,RANDOM 98 mg/dL (74-106)
[2016-11-17] MEDS: PANTOPRAZOLE 40 MG TABLET (FP) PO SCH (09:20)
[2016-11-17] MEDS: THIAMINE HCL 100 MG TABLET (FP) PO SCH (09:20)
[2016-11-17] MEDS: ASPIRIN 325 MG ENTERIC COATED TABLET (FP) PO SCH (09:20)
[2016-11-17] MEDS: LISINOPRIL 5 MG TABLET (FP) PO SCH (09:20)
[2016-11-17] MEDS: FOLIC ACID 1 MG TABLET (FP) PO SCH (09:20)
[2016-11-17] MEDS: NICOTINE 14 MG/24 HOURS TOPICAL PATCH TD SCH (09:21)
[2016-11-17] MEDS ORDERED: POTASSIUM CHLORIDE ORAL LIQUID 20 MEQ/15 ML PO ONE (12:20)
--- NOTE | 2016-11-17 12:22 | PN ---
Teaching Attending Note Name of Resident: Bethany Payton ATTENDING PHYSICIAN STATEMENT I saw and evaluated the patient. I reviewed the resident's note and discussed the case with the resident. I agree with the resident's findings and plan as documented. SUBJECTIVE:currently asymptomatic. denies CP, SOB, fever, chills, GÓMEZ, N/V/C/D, auditory/visual hallucinations, no withdrawal seizures in the past and denies DT.s OBJECTIVE: Last Vital Signs Temp Pulse Resp BP Pulse Ox 97.5 F L 113 H 16 139/75 97 11/17/16 06:00 11/17/16 06:00 11/17/16 08:21 11/17/16 06:00 11/17/16 08:21 General NAD CV S1 S2 RRR no murmur/rub/gallop no JVD Lungs CTA B/L no wheezing/rales/rhonchi ABdomen soft NT/ND Extremities Trace pitting edema, no tremors ASSESSMENT AND PLAN: 56yo F wtih PMH systolic CHF with ICD placement (but ICD mechanism turned off due to frequent shocks?), HTN and continous polysubstance abuse presented with SOB and CP 1. Acute on chronic systolic CHF-appears euvolemix. on lasix po. plan for angiogram at [facility]. cardio on board. 2. Sinus tachycardia- noted on monitor with short run of NSVT. likely due to withdrawals. now on librium taper. unable to start betablocker due to cocaine use. monitor. 2. Hypokalemia-Kcl 3. CP- cardiac enzymes neg x3. no repeated episodes 4. Hypomagnesemia- 5. continuous polysubstance abuse- CIWA currently 0 but on librium and just received dose. no documentation of CIWA at time of evaluation and librium initiated. complete taper. monitor for signs of worsening withdrawal. counseled on importance of drug abstinence and that her health will continue to deteriorate. cont thiamine/folate/MVI. 6. DVT ppx- EAM
[2016-11-17 12:38] VITALS: BP 100/60; PULSE 116; TEMP 98.4
--- NOTE | 2016-11-17 16:39 | PN ---
Physical Exam: SUBJECTIVE: Patient seen and examined OBJECTIVE: Vital Signs Period Temp Pulse Resp BP Sys/Bravo Pulse Ox Last 24 Hr 97.5 F-98.4 F 47-116 16-24 100-139/60-78 97-97 GENERAL: The patient is awake, alert, and fully oriented, in no acute distress. HEAD: Normal with no signs of trauma. EYES: PERRL, extraocular movements intact, sclera anicteric, conjunctiva clear. No ptosis. ENT: Ears normal, nares patent, oropharynx clear without exudates, moist mucous membranes. NECK: Trachea midline, full range of motion, supple. LUNGS: Breath sounds equal, clear to auscultation bilaterally, no wheezes, no crackles, no accessory muscle use. HEART: Regular rate and rhythm, S1, S2 without murmur, rub or gallop. ABDOMEN: Soft, nontender, nondistended, normoactive bowel sounds, no guarding, no rebound, no hepatosplenomegaly, no masses. EXTREMITIES: 2+ pulses, warm, well-perfused, no edema. NEUROLOGICAL: Cranial nerves II through XII grossly intact. Normal speech, gait not observed. PSYCH: Normal mood, normal affect. SKIN: Warm, dry, normal turgor, no rashes or lesions noted Laboratory Results - last 24 hr 11/17/16 11/17/16 07:45 07:45 WBC 7.4 RBC 4.72 Hgb 13.7 Hct 42.1 MCV 89.2 MCH 29.0 MCHC 32.5 RDW 17.0 H Plt Count 118 L MPV 9.7 Sodium 139 Potassium 3.5 Chloride 101 Carbon Dioxide 31 Anion Gap 7 L BUN 14 D Creatinine 0.9 Random Glucose 98 D Calcium 9.1 ASSESSMENT/PLAN:
--- NOTE | 2016-11-17 17:13 | DS ---
Physical Exam: SUBJECTIVE: Patient seen and examined at bedside today. Pt afebrile overnight, however had tremors and stated to night team that she had a drink the day before she was admitted. Pt was put on librium protocol. She also was seen overnight by the team for non-sustained Vtach, with HR ranging from 80-130's. This morning, pt was tachycardic at 110, however this was most likely d/t alcohol withdrawal. OBJECTIVE: Vital Signs Period Temp Pulse Resp BP Sys/Bravo Pulse Ox Last 24 Hr 97.5 F-98.4 F 47-116 16-24 100-139/60-78 97-97 PHYSICAL EXAM GENERAL: The patient is lethargic, SOB, in mild distress. HEAD: Normal with no signs of trauma. EYES: PERRL, extraocular movements intact, sclera anicteric, conjunctiva clear. NECK: Trachea midline, supple. LUNGS: mild wheezing appreciated bilaterally HEART: tachycardic rate and rhythm, S1, S2 without murmur, rub or gallop. ABDOMEN: Soft, nontender, nondistended, normoactive bowel sounds, no guarding, no rebound, no hepatosplenomegaly, no masses. EXTREMITIES: 2+ posterior tibial pulses, warm, well-perfused, trace edema. NEUROLOGICAL: Cranial nerves II through XII grossly intact. No tremor noted on exam. VITALS TREND/LABS Vitals Trend 11/15/16 11/15/16 11/15/16 16:19 17:30 21:08 Temperature 98 F Pulse Rate 133 H Pulse Rhythm [ Regular Apical] Respiratory 25 H 18 Rate Blood Pressure 114/79 Blood Pressure 119/67 [Right Arm] 11/15/16 11/16/16 11/16/16 22:30 01:00 06:00 Temperature 97.7 F 97.7 F 97.9 F Pulse Rate 86 93 H 86 Pulse Rhythm [ Apical] Respiratory 20 20 20 Rate Blood Pressure 115/85 116/70 96/61 Blood Pressure [Right Arm] 11/16/16 11/16/16 11/16/16 10:00 14:00 14:30 Temperature 97.6 F 98.1 F Pulse Rate 88 94 H 55 L Pulse Rhythm [ Regular Apical] Respiratory 20 20 Rate Blood Pressure 102/68 120/67 Blood Pressure [Right Arm] 11/16/16 11/16/16 11/16/16 18:00 20:51 22:00 Temperature 97.9 F 98.1 F Pulse Rate 47 L 111 H Pulse Rhythm [ Irregular Apical] Respiratory 18 24 Rate Blood Pressure 108/70 110/70 Blood Pressure [Right Arm] 11/17/16 11/17/16 11/17/16 02:00 06:00 08:21 Temperature 98.2 F 97.5 F L Pulse Rate 102 H 113 H Pulse Rhythm [ Irregular Apical] Respiratory 24 16 16 Rate Blood Pressure 111/78 139/75 Blood Pressure [Right Arm] 11/17/16 10:00 Temperature 98.4 F Pulse Rate 116 H Pulse Rhythm [ Apical] Respiratory 20 Rate Blood Pressure 100/60 Blood Pressure [Right Arm] Laboratory Tests 11/15/16 11/15/16 11/15/16 16:47 16:47 16:47 RDW 17.3 H INR 1.60 H Sodium 143 Potassium 3.5 Chloride 110 H Carbon Dioxide 25 D BUN 11 D Creatinine 0.8 Random Glucose 152 H D AST 45 H ALT 49 B-Natriuretic Peptide 3442.87 H Total Protein Albumin Triglycerides Cholesterol Total LDL Cholesterol HDL Cholesterol 11/16/16 11/17/16 11/17/16 06:30 07:45 07:45 RDW 17.0 H INR Sodium 142 139 Potassium 3.3 L 3.5 Chloride 108 H 101 Carbon Dioxide 26 31 BUN 10 14 D Creatinine 0.8 0.9 Random Glucose 142 H 98 D AST 43 H ALT 45 B-Natriuretic Peptide Total Protein 6.8 Albumin 3.4 Triglycerides 52 Cholesterol 83 Total LDL Cholesterol 47 HDL Cholesterol 30 L IMAGING 11/15/16: CXR: the heart size is enlarged. A L sided pacemaker is present. There is patchy opacification throughout the lung aranda consistent with pulmonary vascular congestion 11/15/16: EKG: sinus rhythm with premature atrial complexes, left atrial enlargement, LVH, T wave abnormality, consider lateral ischemia, prolonged QT, abnormal EKG when compared to EKG of October 23, 2016, premature atrial complexes are now present 11/16/16: EKG: sinus rhythm with premature supraventricular complexes and with frequent ventricular complexes, voltage criteria for LVH, nonspecific T wave abnormality, prolonged QT, abnormal EKG, when compared to EKG of November 15, 2016. Premature ventricular complexes are now present. QT has lengthened. T wave inversion less evident in lateral leads. 11/16/16: CXR: no significant change from prior CXR done on 11/15/16 HOSPITAL COURSE: Date of Admission:11/15/16 Date of Discharge: 11/17/16 Admit diagnosis: acute on chronic systolic CHF Pre-admission course 56yo F with significant history of systolic CHF (EF of 21%; s/p ICD after MIx2) , cocaine abuse, alcohol abuse, and HTN who is being seen in the ED for chest pressure and difficulty breathing. Pt states she was recently discharged on October 2016 for another acute exacerbation of CHF. She reports this morning she started feeling SOB and chest pressure and called an ambulance, however she states the ambulance did not arrive. Instead, she drove herself to the hospital where a rapid response was called in the lobby and she was promptly sent to the ED. Pt reports cough starting 1-2 days ago with minimal production which she does not know what colour the sputum is. She reports baseline lower extremity which is controlled via Lasix. Pt denies any abdominal pain, fever/chills, diarrhea/constipation. Pt has a long history of alcohol and cocaine abuse. Pt admits her last cocaine use was 11/10/16 and her last drink was 11/14/16 consisting of one beer. Pt denies any tremors, paroxysmal sweats, visual/tactile/auditory hallucinations. ER course notable for: 1) EKG - sinus tachycardia with no change from most recent ECG 2) Morphine 4mg given x1 3) CXR - ICD in place with slight cardiomegaly. Diffuse congestion in comparison of previous XR. No effusions noted 4) Lasix 40mg dose x1 given 5) Labwork revealing: Troponin x1 negative, BNP elevated at 3442 Hospital course Pt managed for acute on chronic systolic CHF. CXR showed patchy opacification throughout the lung aradna consistent with pulmonary vascular congestion. Pt was put on lasix 40 mg BID, and strict I's and 0's were done as well as daily weight. Pt was seen by cardiology, and cardiac cath was recommended for definitive assessment of coronary anatomy at [facility] today. Pt was transferred. While on floor, pt was also counseled on abstinence to drugs/alcohol and medication non-compliance. Pt's last drink was 1 day prior to admission, and last cocaine use was 1 week before presenting. Pt expressed willingness to attend in-patient detox program; stated that outpatient programs never helped her. She has had trouble quitting her addiction, since she has been using since "age 9." Pt was placed on Librium taper protocol, and received 3 doses of 50mg q6 while at [facility]. She is recommended to continue protocol after her procedure is complete. During this time, she continued her home medications such as Lisinopril 2.5mg PO. Pt was also placed on Aspirin 325 mg PO. Minutes to complete discharge: 32 Discharge Summary Reason For Visit: CHF Current Active Problems Benzodiazepine abuse, episodic (Acute) Congestive heart failure (CHF) (Chronic) Elevated liver enzymes (Chronic) Family history of colon cancer (Chronic) Condition: Improved - Instructions Diet, Activity, Other Instructions: You were recently in the hospital since your heart failure was worsened, and you were in alcohol withdrawal. You are being transferred to another institution for a cardiac catheterization procedure, which will help doctors look at the blood vessels in your heart. Please continue the following medications: -Albuterol 2.5/Ipratropium nebs 1 amp every 4 hours as needed - for shortness of breath -Aspirin coated 325mg (a capsule) by mouth daily -Folic acid 1mg by mouth daily -Lasix 40mg by mouth twice a day -Atorvastatin Ca 40mg by mouth at night -Nicotine patch 14mg TD daily -Lisinopril 2.5 mg by mouth daily -Thiamine 100mg by mouth daily -Continue librium protocol for alcohol withdrawal in patient detox after hospitalization - pt received 2 doses of 50mg q6h while in hospital If you become short of breath, develop chest pain, or any new symptoms, please go to the hospital. We hope you feel better soon. Referrals: Juan M Sherman MD [Staff Physician] - Disposition: TRANSFER ACUTE CARE/OTHER HOSP - Home Medications Comprehensive Discharge Medication List: Ambulatory Orders Aspirin Coated [Ecotrin -] 81 mg PO DAILY #30 tablet.ec 05/21/16 Potassium Chloride [K-Dur -] 20 meq PO DAILY #30 tablet.er 05/21/16 Folic Acid - 1 mg PO DAILY tablet 10/12/16 Furosemide [Lasix -] 40 mg PO DAILY #15 tablet 10/12/16 Lisinopril [Prinivil] 2.5 mg PO DAILY #20 tablet 10/12/16 Thiamine HCl [Vitamin B1 -] 100 mg PO DAILY tablet 10/12/16 This patient is new to me today: No Emergency Visit: No Critical Care patient: No - Discharge Referral Referred to [facility] Med P.C.: No
[2016-11-17] MEDS ORDERED: chlordiazePOXIDE HCL 25 MG CAPSULE PO SCH (18:00)
[2016-11-18] MEDS ORDERED: chlordiazePOXIDE 5 MG CAPSULE PO SCH (18:00)
== END 2016-11-17 12:43 | disposition short-term general hospital (02) | DRG 194 ==
LOC: JER 16:12 → JERBED 18:42 → J4W 23:23 → J4S 11-16 05:29
PROVIDERS: ADMIT Internal Medicine; ATTEND Internal Medicine
DX: I50.23 Acute on chronic systolic (congestive) heart failure (principal); I42.8 Other cardiomyopathies; I34.0 Nonrheumatic mitral (valve) insufficiency; E87.6 Hypokalemia; E83.42 Hypomagnesemia; F10.230 Alcohol dependence with withdrawal, uncomplicated; J44.9 Chronic obstructive pulmonary disease, unspecified; F14.20 Cocaine dependence, uncomplicated; F17.210 Nicotine dependence, cigarettes, uncomplicated; R09.89 Other specified symptoms and signs involving the circulatory and respiratory systems; E66.9 Obesity, unspecified; I25.10 Atherosclerotic heart disease of native coronary artery without angina pectoris; I25.2 Old myocardial infarction; I50.22 Chronic systolic (congestive) heart failure; Z95.810 Presence of automatic (implantable) cardiac defibrillator; I10 Essential (primary) hypertension; E78.5 Hyperlipidemia, unspecified; F13.10 Sedative, hypnotic or anxiolytic abuse, uncomplicated; R74.8 Abnormal levels of other serum enzymes; Z91.14 Patient's other noncompliance with medication regimen; Y90.9 Presence of alcohol in blood, level not specified; Z68.28 Body mass index [BMI] 28.0-28.9, adult
CPT/HCPCS: 36415; 71010-TC; 71020-TC; 80048; 80053; 80061; 80307; 81003; 83721; 83735; 83880; 84484; 85025; 85027; 85610; 93005; 93010; 99283-25